=== PATIENT | male | born 1965 | race African-American/Black ===

== ENCOUNTER → 2016-11-18 | Outpatient (CLI) | payer OTHER ==
--- NOTE | 2016-11-18 15:57 | MR ---
MRI CERVICAL SPINE: CLINICAL HISTORY: Cervicalgia, spondylosis, and radiculopathy all per order. Headache with neck pain causing pain or weakness into both arms and fingers for 3+ years per patient. History of prior neck s urgery per patient. TECHNIQUE: Multiplanar, multisequence imaging of the cervical spine is performed without and with IV contrast, 13 cc of gadolinium was given intravenously. COMPARISON: Cervical spine x-ray March 04, 2015. FINDINGS: Sagittal images of the cervical spine show the craniocervical junction to appear within nor mal limits. The cervical and upper thoracic spinal cord is normal in course, caliber, and signal. V ertebral alignment is anatomic. There is artifact from anterior fusion plate C5-C7 levels. The verte bral body and intravertebral disk heights are normal above and below surgical levels. No suspicious posterior disc herniations are seen. The bone marrow signal intensity is within normal limits. No abn ormal postcontrast enhancement is noted. Mild to moderate spurring anterior inferior C4 endplate is p resent. Axial images show the C2-C3 level to appear within normal limits. Axial images at C3-C4 level show left paracentral/foraminal spur disc complex on axial image 43 with left-sided uncovertebral facet degenerative changes, there is effacement of anterolateral thecal sac and moderate left-sided neural foraminal narrowing seen. Right-sided neural foramen is patent. Axial images at C4-C5 level show small lobulated broad-based left paracentral disc protrusion effacin g anterolateral thecal sac with asymmetric mild to moderate left-sided neural foraminal narrowing as there are some uncovertebral facet degenerative changes seen bilaterally near axial image 30. The rig ht sided neural foramen is patent. Axial images at C5-C6 and C6-C7 level show artifact from surgical change. Spinal canal is fairly well -maintained and bilateral neural foramina are patent. Axial images at C7-T1 level are felt within normal limits. IMPRESSION: Postsurgical changes C5-C7 level with satisfactory alignment identified. There are degene rative changes C3-C4 and C4-C5 level noted as detailed above.
== END ==
LOC: RADMRIMAIN 14:40
PROVIDERS: ATTEND Neurological Surgery
DX: M50.31 Other cervical disc degeneration, high cervical region (principal); M50.221 Other cervical disc displacement at C4-C5 level
CPT/HCPCS: 72156; A9577

== ENCOUNTER 2016-12-13 18:08 | Emergency (ER) | payer OTHER ==
[2016-12-13 19:22] VITALS: PULSE 66
[2016-12-13] MEDS ORDERED: KETOROLAC 30 MG/ML 1 ML VIAL IVP STA (19:36)
[2016-12-13] MEDS ORDERED: MORPHINE SULFATE 4 MG/ML SYRINGE IVP STA (19:36)
--- NOTE | 2016-12-13 19:36 | ED ---
General Adult HPI - General Chief complaint: Back Pain/Injury Stated complaint: BACK PAIN, POST COLONOSCOPY Time Seen by Provider: 12/13/16 19:23 Source: patient, RN notes reviewed Mode of arrival: wheelchair Limitations: no limitations - History of Present Illness Initial comments: 51-year-old male presenting for low back pain. Patient states he has chronic low back pain and has had multiple prior back surgeries. He states it is acutely worse over the past few days. He does state that he had colonoscopy on Friday of this week by Dr. Aguilar. He is concerned about complications with this. He denies any abdominal pain associated. Denies any fevers or chills. He denies any nausea or vomiting. States he's been taking his normal [place] without improvement of his pain. He denies any falls. He denies any saddle paresthesias. He denies any bowel or bladder incontinence. - Related Data Home Medications Medication Instructions Recorded Confirmed HYDROcodone/APAP 10-325MG [[place] 1 tab PO Q6H PRN 11/08/16 12/13/16 10-325] Previous Rx's Medication Instructions Recorded Diazepam [Valium] 5 mg PO BID PRN #8 tab 12/13/16 Ibuprofen [Motrin] 800 mg PO Q8HR PRN #21 tab 12/13/16 Allergies Allergy/AdvReac Type Severity Reaction Status Date / Time No Known Allergies Allergy Verified 12/13/16 19:45 Review of Systems ROS Statement: Those systems with pertinent positive or pertinent negative responses have been documented in the HPI. ROS Other: All systems not noted in ROS Statement are negative. Past Medical History Past Medical History: No Reported History, Unable to Obtain Additional Past Medical History / Comment(s): C/O of R shoulder and back pain., chronic neck pain History of Any Multi-Drug Resistant Organisms: None Reported Past Surgical History: Orthopedic Surgery Additional Past Surgical History / Comment(s): Repair of broken nose in February 2015. Epidural injections to his neck. Past Anesthesia/Blood Transfusion Reactions: No Reported Reaction Past Psychological History: No Psychological Hx Reported Smoking Status: Former smoker Past Alcohol Use History: None Reported Additional Past Alcohol Use History / Comment(s): Smokes 1/2 ppd x 30 yrs. Past Drug Use History: None Reported - Past Family History Mother Family Medical History: Cancer Additional Family Medical History / Comment(s): Unknown General Exam - General Exam Comments Initial Comments: General: Awake and Alert. No acute distress. Does not appear acutely ill. Eyes: FABIOLA, EOM intact. No nystagmus. No scleral icterus. HENT: Atraumatic, normocephalic. Mucous membranes moist. Trachea midline. Neck: The neck is supple, there is no tenderness or JVD. Cardiovascular: Regular rate and rhythm. No murmur, rub, or gallop is appreciated. Distal pulses intact, 2+ radial and DP bilateral. Respiratory: Lungs are clear to auscultation bilaterally. No wheezes, rales, rhonchi. No respiratory distress. Gastrointestinal: Soft, Nontender. No rebound or guarding. Non-distended. No masses or organomegaly noted. No CVA tenderness. Musculoskeletal: Low back tenderness. No gross deformity. No strength deficits. Neurological: A&Ox3. CN II-XII grossly intact, There are no obvious motor or sensory deficits. Coordination appears grossly intact. Speech is normal. No saddle paresthesias. Normal gait. Skin: Skin is warm and dry and no rashes or lesions are noted. Psychiatric: Cooperative, appropriate mood & affect, normal judgment. Limitations: no limitations Course Vital Signs 12/13/16 12/13/16 19:19 21:05 Temperature 97.5 F L 98.1 F Pulse Rate 66 66 Respiratory 20 16 Rate Blood Pressure 142/55 113/56 O2 Sat by Pulse 100 98 Oximetry Medical Decision Making - Medical Decision Making 51-year-old male with history of chronic back pain presenting for low back pain. Patient recently had colonoscopy. Patient is without any significant abdominal tenderness on examination or evidence of peritonitis. Does have low back tenderness although this is chronic per patient, but worsened.. No evidence of cauda equina or acute cord compression at this time. Given pain medications and muscle relaxer. On reevaluation states he is feeling improved. Abdominal x-ray was performed with no evidence of free air. Lab work with mild leukocytosis but labs otherwise stable. This leukocytosis is likely reactive to pain and recent procedure. Discussion with patient about acute flare of his chronic pain is likely secondary to positional changes during the colonoscopy. Low suspicion of acute bowel perforation or severe infectious etiology at this time. Discussed pain management and Rx provided. Discussed close follow-up with PCP. Discussed close follow-up with Dr. Aguilar, surgery. Pt states he is following up with his pain doctor next week. Discussed concerning signs symptoms for immediate return to the ED. Patient is agreeable with plan and discharge home. - Lab Data Result diagrams: 12/13/16 19:55 12/13/16 19:55 Lab Results 12/13/16 12/13/16 Range/Units 19:55 19:55 WBC 13.4 H (3.8-10.6) k/uL RBC 4.60 (4.30-5.90) m/uL Hgb 14.6 (13.0-17.5) gm/dL Hct 43.5 (39.0-53.0) % MCV 94.6 (80.0-100.0) fL MCH 31.6 (25.0-35.0) pg MCHC 33.4 (31.0-37.0) g/dL RDW 12.5 (11.5-15.5) % Plt Count 264 (150-450) k/uL Neutrophils % 64 % Lymphocytes % 28 % Monocytes % 5 % Eosinophils % 1 % Basophils % 1 % Neutrophils # 8.5 H (1.3-7.7) k/uL Lymphocytes # 3.8 (1.0-4.8) k/uL Monocytes # 0.7 (0-1.0) k/uL Eosinophils # 0.2 (0-0.7) k/uL Basophils # 0.1 (0-0.2) k/uL Sodium 140 (137-145) mmol/L Potassium 3.6 (3.5-5.1) mmol/L Chloride 105 (98-107) mmol/L Carbon Dioxide 23 (22-30) mmol/L Anion Gap 12 mmol/L BUN 13 (9-20) mg/dL Creatinine 0.90 (0.66-1.25) mg/dL Est GFR (MDRD) Af Amer >60 (>60 ml/min/1.73 sqM) Est GFR (MDRD) Non-Af >60 (>60 ml/min/1.73 sqM) Glucose 89 (74-99) mg/dL Calcium 10.0 (8.4-10.2) mg/dL Total Bilirubin 0.8 (0.2-1.3) mg/dL AST 17 (17-59) U/L ALT 28 (21-72) U/L Alkaline Phosphatase 73 (38-126) U/L Total Protein 7.7 (6.3-8.2) g/dL Albumin 4.6 (3.5-5.0) g/dL Lipase 86 (23-300) U/L - Radiology Data Radiology results: report reviewed, image reviewed Disposition Clinical Impression: Back spasm, Back pain Disposition: HOME SELF-CARE Condition: Stable Instructions: Acute Low Back Pain (ED), Chronic Back Pain (ED) Prescriptions: Diazepam [Valium] 5 mg PO BID PRN #8 tab PRN Reason: back spasm Ibuprofen [Motrin] 800 mg PO Q8HR PRN #21 tab PRN Reason: Pain Referrals: Ping Leon MD [Primary Care Provider] - 1-2 days
[2016-12-13] MEDS ORDERED: DIAZEPAM 5 MG TAB PO STA (19:37)
[2016-12-13 20:04] LABS: Basophils # (A) 0.1 k/uL (0-0.2); Basophils % (A) 1 %; Eosinophils # (A) 0.2 k/uL (0-0.7); Eosinophils % (A) 1 %; HCT 43.5 % (39.0-53.0); HDW 2.23; HGB 14.6 gm/dL (13.0-17.5); Luc # (Auto) 0.21; Luc % (Auto) 2; Lymphocytes # (A) 3.8 k/uL (1.0-4.8); Lymphocytes % (A) 28 %; MCH 31.6 pg (25.0-35.0); MCHC 33.4 g/dL (31.0-37.0); MCV 94.6 fL (80.0-100.0); Mean Platelet Volume 7.3; Monocytes # (A) 0.7 k/uL (0-1.0); Monocytes % (A) 5 %; Neutrophils # (A) 8.5 k/uL (1.3-7.7); Neutrophils % (A) 64 %; RDW 12.5 % (11.5-15.5); WBC 13.4 k/uL (3.8-10.6); WBC (Perox) 12.89
[2016-12-13 20:13] LABS: ALT 28 U/L (21-72); AST 17 U/L (17-59); Alkaline Phosphatase 73 U/L (38-126); Anion Gap 12 mmol/L; Blood Urea Nitrogen 13 mg/dL (9-20); Carbon Dioxide 23 mmol/L (22-30); Chloride 105 mmol/L (98-107); Glucose 89 mg/dL (74-99); Non-African American GFR(MDRD) >60 (>60 ml/min/1.73 sqM); Potassium 3.6 mmol/L (3.5-5.1); Sodium 140 mmol/L (137-145); Total Bilirubin 0.8 mg/dL (0.2-1.3); Total Protein 7.7 g/dL (6.3-8.2)
--- NOTE | 2016-12-13 20:13 | XR ---
EXAMINATION TYPE: XR KUB DATE OF EXAM: 12/13/2016 8:04 PM COMPARISON: NONE HISTORY: Back pain TECHNIQUE: 2 views FINDINGS: There is no sign of intestinal obstruction or pneumoperitoneum. Fecal pattern is normal. Th ere is no sign of a mass. There are no pathologic calcifications over the kidneys. Lung bases are vincent ar. IMPRESSION: Nonacute abdomen.
[2016-12-13 21:13] VITALS: BP 113/56; RESP 16; TEMP 98.1
== END 2016-12-13 21:30 | disposition home or self-care (01) ==
LOC: EC 18:08
DX: M62.830 Muscle spasm of back (principal); D72.829 Elevated white blood cell count, unspecified; Z87.891 Personal history of nicotine dependence; Z98.890 Other specified postprocedural states
CPT/HCPCS: 99283; 96374; 96375; 36415; 80053; 83690; 85025; 74000; J2270; J1885

== ENCOUNTER 2017-04-08 16:14 | Emergency (ER) | payer OTHER ==
[2017-04-08 16:18] VITALS: TEMP 97.8
--- NOTE | 2017-04-08 16:57 | ED ---
Extremity Problem HPI - General Chief complaint: Extremity Problem,Nontraumatic Stated complaint: Wrist Pain Time Seen by Provider: 04/08/17 16:30 Source: patient, RN notes reviewed Mode of arrival: ambulatory Limitations: no limitations - History of Present Illness Initial comments: This a 51-year-old male presents emergency Department with chief complaint of right wrist pain. Patient states it started on Friday after playing washers. Patient states that he is [id number]. He states that he has swelling and pain associated to the right wrist worse with movement better at rest. Patient denies any paresthesias. Denies any falls or traumatic injuries. Patient denies any fever, chills. - Related Data Home Medications Medication Instructions Recorded Confirmed HYDROcodone/APAP 10-325MG [[place] 1 tab PO BID PRN 11/08/16 04/08/17 10-325] Previous Rx's Medication Instructions Recorded methylPREDNISolone [Medrol Dose 4 mg PO DIRECTED #1 pack 04/08/17 Pack] Allergies Allergy/AdvReac Type Severity Reaction Status Date / Time No Known Allergies Allergy Verified 04/08/17 16:34 Review of Systems ROS Statement: Those systems with pertinent positive or pertinent negative responses have been documented in the HPI. ROS Other: All systems not noted in ROS Statement are negative. Past Medical History Past Medical History: No Reported History, Unable to Obtain Additional Past Medical History / Comment(s): C/O of R shoulder and back pain., chronic neck pain History of Any Multi-Drug Resistant Organisms: None Reported Past Surgical History: Orthopedic Surgery Additional Past Surgical History / Comment(s): Repair of broken nose in February 2015. Epidural injections to his neck. Past Anesthesia/Blood Transfusion Reactions: No Reported Reaction Past Psychological History: No Psychological Hx Reported Smoking Status: Current every day smoker Past Alcohol Use History: Occasional Past Drug Use History: None Reported - Past Family History Mother Family Medical History: Cancer Additional Family Medical History / Comment(s): Unknown General Exam Limitations: no limitations General appearance: alert, in no apparent distress Respiratory exam: Present: normal lung sounds bilaterally. Absent: respiratory distress, wheezes, rales, rhonchi, stridor Cardiovascular Exam: Present: regular rate, normal rhythm, normal heart sounds. Absent: systolic murmur, diastolic murmur, rubs, gallop, clicks Extremities exam: Present: other (Right wrist there is tenderness to palpation diffusely and pain with range of motion there is mild swelling noted with no change in temperature to the region pulses are equal bilaterally of the radial, there is no hand tenderness or any proximal radial ulnar tenderness) Neurological exam: Present: reflexes normal. Absent: motor sensory deficit Skin exam: Present: warm, dry, intact, normal color. Absent: rash Course Vital Signs 04/08/17 16:16 Temperature 97.8 F Pulse Rate 64 Respiratory 20 Rate Blood Pressure 144/87 O2 Sat by Pulse 99 Oximetry Procedures - Orthopedic Splinting/Casting Injury #1 Side: right Upper Extremity Injury Location: wrist Upper Extremity Immobilizer: volar splint (Short arm neurovascular intact before and after procedure) Medical Decision Making - Medical Decision Making 51-year-old male present emergency department with chief complaint of right wrist pain. Patient does have some swelling more consistent with tendinitis. Patient was playing wash it started. Patient was splinted for comfort care will follow-up with orthopedics. Return parameters were discussed. Disposition Clinical Impression: Right wrist tendinitis Disposition: HOME SELF-CARE Condition: Stable Instructions: Tendinitis (ED) Additional Instructions: Please return to the Emergency Department if symptoms worsen or any other concerns. Prescriptions: methylPREDNISolone [Medrol Dose Pack] 4 mg PO DIRECTED #1 pack Referrals: Ping Leon MD [Primary Care Provider] - 1-2 days Darvin Izquierdo DO [Doctor of Osteopathic Medicine] - 1-2 days Time of Disposition: 17:42
--- NOTE | 2017-04-08 17:21 | XR ---
PROCEDURE: XR wrist complete RT DATE AND TIME: 04/08/2017 4:58 PM REFERRING PHYSICIAN: Darvin Shetty CLINICAL INDICATION: PHH, Pain TECHNIQUE: Department protocol. COMPARISON: None FINDINGS: There is no fracture or malalignment. The soft tissues are remarkable for chondrocalcinosis throughou t the triangular fibrocartilage. There are scattered degenerative joint changes noted, predominantly mild in degree. IMPRESSION: 1. NO ACUTE PROCESS. 2. DEGENERATIVE CHANGES NOTED.
[2017-04-08] MEDS ORDERED: MORPHINE SULFATE 4 MG/ML SYRINGE IM STA (17:39)
[2017-04-08] MEDS ORDERED: predniSONE 50 MG TAB PO STA (17:40)
[2017-04-08 17:50] VITALS: BP 151/75; PULSE 61; RESP 18
== END 2017-04-08 17:50 | disposition home or self-care (01) ==
LOC: EC 16:14
DX: M77.8 Other enthesopathies, not elsewhere classified (principal); F17.200 Nicotine dependence, unspecified, uncomplicated
CPT/HCPCS: 73110; 99283; 29125; 96372; J2270; J7512

== ENCOUNTER 2017-06-17 05:59 | Emergency (ER) | payer OTHER ==
[2017-06-17] MEDS ORDERED: KETOROLAC 30 MG/ML 1 ML VIAL IVP STA (06:23)
[2017-06-17] MEDS ORDERED: HYDROmorphone 1 MG/ML 1 ML SYRINGE IVP STA ×2 (06:23→07:09)
[2017-06-17 06:31] LABS: Basophils # (A) 0.1 k/uL (0-0.2); Basophils % (A) 1 %; CH 31.3; CHCM 33.1; Eosinophils # (A) 0.3 k/uL (0-0.7); Eosinophils % (A) 3 %; HCT 45.4 % (39.0-53.0); HDW 2.12; HGB 14.8 gm/dL (13.0-17.5); Luc # (Auto) 0.16; Luc % (Auto) 1; Lymphocytes # (A) 3.2 k/uL (1.0-4.8); Lymphocytes % (A) 24 %; MCHC 32.6 g/dL (31.0-37.0); Mean Platelet Volume 7.6; Monocytes # (A) 0.7 k/uL (0-1.0); Monocytes % (A) 6 %; Neutrophils # (A) 8.6 k/uL (1.3-7.7); Neutrophils % (A) 66 %; RBC 4.77 m/uL (4.30-5.90); RDW 13.4 % (11.5-15.5); WBC (Perox) 12.91
[2017-06-17 06:37] LABS: Appearance,Urine Clear (Clear); Bilirubin,Urine Negative (Negative); Glucose,Urine (UA) Negative (Negative); Ketones,Urine Negative (Negative); Leukocyte Esterase,Urine Negative (Negative); Nitrite,Urine Negative (Negative); PH, Urine 6.5 (5.0-8.0); Protein,Urine Negative (Negative); Specific Gravity,Urine 1.015 (1.001-1.035); UA Billing (MACRO vs. MICRO) CHEM; Urobilinogen,Urine <2.0 mg/dL (<2.0)
[2017-06-17 06:41] LABS: ALT 23 U/L (21-72); AST 20 U/L (17-59); Alkaline Phosphatase 87 U/L (38-126); Amylase 75 U/L (30-110); Anion Gap 11 mmol/L; Blood Urea Nitrogen 11 mg/dL (9-20); Calcium 10.5 mg/dL (8.4-10.2); Carbon Dioxide 25 mmol/L (22-30); Chloride 101 mmol/L (98-107); Glucose 121 mg/dL (74-99); Non-African American GFR(MDRD) >60 (>60 ml/min/1.73 sqM); Potassium 4.2 mmol/L (3.5-5.1); Sodium 137 mmol/L (137-145); Total Bilirubin 0.3 mg/dL (0.2-1.3); Total Protein 7.6 g/dL (6.3-8.2)
--- NOTE | 2017-06-17 06:52 | XR ---
EXAMINATION TYPE: XR KUB DATE OF EXAM: 06/17/2017 6:45 AM CLINICAL HISTORY: Abdominal pain per order. Left-sided pain into back with weakness per patient. TECHNIQUE: Two supine KUB images of the abdomen are obtained. COMPARISON: Abdominal x-ray December 13, 2016. CT abdomen and pelvis November 08, 2016. FINDINGS: Scattered gas is seen in non-distended stomach and small bowel loops. Gas and fecal materia l is seen in non-distended colon. Right-sided pelvic phleboliths are redemonstrated. Lung bases are c lear. Visualized osseous structures are intact. Sclerotic focus right femoral neck is redemonstrated favored benign bone island. IMPRESSION: Overall nonobstructive bowel gas pattern. No significant change from prior studies.
--- NOTE | 2017-06-17 07:58 | CT ---
EXAMINATION TYPE: CT abdomen pelvis wo con DATE OF EXAM: 06/17/2017 HISTORY: Kidney/back pain CT DLP: 257.9 mGycm. Automated Exposure Control for Dose Reduction was Utilized. TECHNIQUE: CT scan of the abdomen and pelvis is performed without oral or IV contrast. COMPARISON: CT abdomen and pelvis November 08, 2016 FINDINGS: Within the limitations of a non-contrast study, the following observations are made. LUNG BASES: No significant abnormality is appreciated. LIVER/GB: No significant abnormality is appreciated. PANCREAS: No significant abnormality is seen. SPLEEN: No significant abnormality is seen. ADRENALS: No significant abnormality is seen. KIDNEYS: No renal stones or hydronephrosis is present bilaterally. A few scattered pelvic phleboliths are redemonstrated. Bladder is poorly distended and thus suboptimally evaluated. Bladder wall thickn ess measures up to 8 mm which is slightly thickened for 11 poorly distended bladder. Consider cystiti s. BOWEL: Patient has very little intra-abdominal fat making evaluation suboptimal. In addition lack of enteric contrast makes evaluation suboptimal. There is no suspicious small or large bowel dilatation. There is low-lying cecum into right pelvis. GENITAL ORGANS: Central zone calcifications are seen in normal size prostate gland.. LYMPH NODES: No greater than 1cm abdominal or pelvic lymph nodes are appreciated. OSSEOUS STRUCTURES: No significant abnormality is seen. OTHER: No significant additional abnormality is seen. IMPRESSION: No renal stones or hydronephrosis is seen bilaterally. No bowel obstruction is seen. Poss ible cystitis, clinical correlation advised. Otherwise no suspicious acute finding is present to acco unt for patient's symptoms.
--- NOTE | 2017-06-17 08:24 | ED ---
General Adult HPI - General Chief complaint: Abdominal Pain Stated complaint: Kidney/back pain Time Seen by Provider: 06/17/17 06:23 Source: patient, RN notes reviewed Mode of arrival: ambulatory Limitations: no limitations - History of Present Illness Initial comments: Patient was originally seen by Dr. Alvarado and endorsed to me. Patient was reported as left flank pain and further evaluation was being done. Patient is a pleasant 51-year-old male presenting to the emergency department for back pain. Patient describes discomfort in the lumbar region and states it does radiate towards the left flank. Patient does have a history of chronic lower back pain. Patient also has chronic carpal tunnel and chronic neck problems. Patient is on disability for his pain. Patient has not been able to see a pain management doctor recently. Patient states the medication he received here is starting to help him. Patient states when he walks around 1 mile his lower back seems to seize up on him. No tendons retention of bowel or bladder. No leg weakness. Patient does have paresthesias all over his body. Patient states his abdomen was hurting somewhat earlier however that has resolved. - Related Data Previous Rx's Medication Instructions Recorded Ibuprofen [Motrin] 600 mg PO Q6HR PRN #20 tab 06/17/17 Allergies Allergy/AdvReac Type Severity Reaction Status Date / Time No Known Allergies Allergy Verified 06/17/17 07:31 Review of Systems ROS Statement: Those systems with pertinent positive or pertinent negative responses have been documented in the HPI. ROS Other: All systems not noted in ROS Statement are negative. Constitutional: Denies: fever Eyes: Denies: eye pain ENT: Denies: ear pain Respiratory: Denies: cough Cardiovascular: Denies: chest pain Endocrine: Denies: fatigue Gastrointestinal: Reports: abdominal pain (Resolved) Genitourinary: Denies: dysuria Musculoskeletal: Reports: back pain (Chronic) Skin: Denies: rash Neurological: Denies: confusion Past Medical History Past Medical History: Unable to Obtain Additional Past Medical History / Comment(s): C/O of R shoulder and back pain., chronic neck pain History of Any Multi-Drug Resistant Organisms: None Reported Past Surgical History: Orthopedic Surgery Additional Past Surgical History / Comment(s): Repair of broken nose in February 2015. Epidural injections to his neck. Rotater cuff sx Past Anesthesia/Blood Transfusion Reactions: No Reported Reaction Past Psychological History: No Psychological Hx Reported Smoking Status: Current every day smoker Past Alcohol Use History: Occasional Past Drug Use History: None Reported - Past Family History Mother Family Medical History: Cancer Additional Family Medical History / Comment(s): Unknown General Exam Limitations: no limitations General appearance: alert, in no apparent distress Head exam: Present: atraumatic Eye exam: Present: normal appearance, PERRL ENT exam: Present: normal oropharynx Neck exam: Present: normal inspection Respiratory exam: Present: normal lung sounds bilaterally Cardiovascular Exam: Present: regular rate, normal rhythm Expanded Peripheral pulses: 2+: Posterior Tibialis (R), Posterior Tibialis (L), Dorsalis Pedis (R), Dorsalis Pedis (L) GI/Abdominal exam: Present: soft, normal bowel sounds. Absent: distended, tenderness, guarding, rebound, rigid, pulsatile mass Extremities exam: Present: normal inspection. Absent: tenderness Back exam: Present: tenderness (Mild tenderness lower lumbar spine) Neurological exam: Present: alert, CN II-XII intact. Absent: motor sensory deficit Expanded Sensory exam: Lower Extremity Light Touch: Normal Motor strength exam: RLE: 5, LLE: 5 Psychiatric exam: Present: normal affect, normal mood Skin exam: Present: normal color Course Vital Signs 06/17/17 06/17/17 06:01 07:51 Temperature 97.2 F L Pulse Rate 76 64 Respiratory 20 20 Rate Blood Pressure 151/71 134/64 O2 Sat by Pulse 100 98 Oximetry Medical Decision Making - Lab Data Result diagrams: 06/17/17 06:17 06/17/17 06:17 Lab Results 06/17/17 06/17/17 06/17/17 Range/Units 06:17 06:17 06:25 WBC 13.0 H (3.8-10.6) k/uL RBC 4.77 (4.30-5.90) m/uL Hgb 14.8 (13.0-17.5) gm/dL Hct 45.4 (39.0-53.0) % MCV 95.0 (80.0-100.0) fL MCH 31.0 (25.0-35.0) pg MCHC 32.6 (31.0-37.0) g/dL RDW 13.4 (11.5-15.5) % Plt Count 328 (150-450) k/uL Neutrophils % 66 % Lymphocytes % 24 % Monocytes % 6 % Eosinophils % 3 % Basophils % 1 % Neutrophils # 8.6 H (1.3-7.7) k/uL Lymphocytes # 3.2 (1.0-4.8) k/uL Monocytes # 0.7 (0-1.0) k/uL Eosinophils # 0.3 (0-0.7) k/uL Basophils # 0.1 (0-0.2) k/uL Sodium 137 (137-145) mmol/L Potassium 4.2 (3.5-5.1) mmol/L Chloride 101 (98-107) mmol/L Carbon Dioxide 25 (22-30) mmol/L Anion Gap 11 mmol/L BUN 11 (9-20) mg/dL Creatinine 1.01 (0.66-1.25) mg/dL Est GFR (MDRD) Af Amer >60 (>60 ml/min/1.73 sqM) Est GFR (MDRD) Non-Af >60 (>60 ml/min/1.73 sqM) Glucose 121 H (74-99) mg/dL Calcium 10.5 H (8.4-10.2) mg/dL Total Bilirubin 0.3 (0.2-1.3) mg/dL AST 20 (17-59) U/L ALT 23 (21-72) U/L Alkaline Phosphatase 87 (38-126) U/L Total Protein 7.6 (6.3-8.2) g/dL Albumin 4.5 (3.5-5.0) g/dL Amylase 75 (30-110) U/L Lipase 82 (23-300) U/L Urine Color Yellow Urine Appearance Clear (Clear) Urine pH 6.5 (5.0-8.0) Ur Specific [place] 1.015 (1.001-1.035) Urine Protein Negative (Negative) Urine Glucose (UA) Negative (Negative) Urine Ketones Negative (Negative) Urine Blood Negative (Negative) Urine Nitrite Negative (Negative) Urine Bilirubin Negative (Negative) Urine Urobilinogen <2.0 (<2.0) mg/dL Ur Leukocyte Esterase Negative (Negative) - Radiology Data Radiology results: report reviewed (Computed tomography scan of the abdomen pelvis shows no renal stones or hydronephrosis. No bowel obstruction. Some bladder wall thickness which is slightly thickened for poorly distended bladder. ), image reviewed (KUB shows no acute process.) Disposition Clinical Impression: Low back pain Disposition: HOME SELF-CARE Condition: Stable Instructions: Back Pain (ED) Additional Instructions: Please follow-up with your primary care physician in the next day or 2 for recheck. Return for weakness, abdominal pain, fevers, not tolerating oral intake, worsening symptoms or other concerns. Prescriptions: Ibuprofen [Motrin] 600 mg PO Q6HR PRN #20 tab PRN Reason: Pain Referrals: Ping Leon MD [Primary Care Provider] - 1-2 days Time of Disposition: 08:24
[2017-06-17 08:41] VITALS: BP 141/82; PULSE 69; RESP 18; TEMP 98.9
== END 2017-06-17 08:38 | disposition home or self-care (01) ==
LOC: EC 05:59
DX: M54.5 Low back pain (principal); F17.200 Nicotine dependence, unspecified, uncomplicated
CPT/HCPCS: 99284; 96374; 96375; 96376; 36415; 80053; 82150; 83690; 85025; 81003; 74000; 74176; J1885; J1170

== ENCOUNTER → 2017-09-22 | Outpatient (CLI) | payer OTHER ==
--- NOTE | 2017-09-22 12:08 | FL ---
EXAMINATION TYPE: FL barium swallow w video DATE OF EXAM: 09/22/2017 MODIFIED SWALLOW / DEGLUTITION STUDY CLINICAL HISTORY: Dysphagia. Choking on secretions for 6 months. Speech changes. TECHNIQUE: Deglutition study is performed utilizing thin liquid barium, honey and nectar thick liqui d barium, barium thick applesauce, and barium coated cracker. A total of 84 seconds of fluoroscopic t valeri was utilized during procedure. Approximately 12 cine sequences are acquired. 0 images are sent to PACS station. COMPARISON: None. FINDINGS: The oral and pharyngeal phases show satisfactory initiation and propagation with all modali ties tested. Normal mastication is seen with solid modalities tested. There is no evidence of penet ration or aspiration with any modality tested. No significant pharyngeal residue was appreciated. Th ere is redemonstration of anterior fusion plate C5-C7 levels incidentally noted. IMPRESSION: No penetration or aspiration is observed. Please refer to speech therapist notes for further details if necessary.
== END | disposition home or self-care (01) ==
LOC: RADFLMAIN 10:42
PROVIDERS: ATTEND Psychiatry & Neurology Pain Medicine
DX: R13.10 Dysphagia, unspecified (principal)
CPT/HCPCS: 74230

== ENCOUNTER 2018-12-31 19:32 | Emergency (ER) | payer OTHER ==
[2018-12-31 19:53] VITALS: TEMP 98.2
[2018-12-31] MEDS ORDERED: KETOROLAC 30 MG/ML 1 ML VIAL IVP STA (20:20)
[2018-12-31 20:23] LABS: Basophils # (A) 0.1 k/uL (0-0.2); Basophils % (A) 1 %; Eosinophils # (A) 0.3 k/uL (0-0.7); Eosinophils % (A) 2 %; HCT 48.7 % (39.0-53.0); HGB 15.7 gm/dL (13.0-17.5); Hypochromasia Slight; Lymphocytes # (A) 3.5 k/uL (1.0-4.8); Lymphocytes % (A) 34 %; MCH 29.9 pg (25.0-35.0); MCHC 32.2 g/dL (31.0-37.0); MCV 93.1 fL (80.0-100.0); Mean Platelet Volume 7.8; Monocytes # (A) 0.6 k/uL (0-1.0); Monocytes % (A) 6 %; Neutrophils # (A) 5.8 k/uL (1.3-7.7); Neutrophils % (A) 55 %; Platelet Count 275 k/uL (150-450); Poikilocytosis Slight; RBC 5.23 m/uL (4.30-5.90); WBC 10.5 k/uL (3.8-10.6)
--- NOTE | 2018-12-31 20:29 | ED ---
General Adult HPI - General Chief complaint: Recheck/Abnormal Lab/Rx Stated complaint: Leg pain Time Seen by Provider: 12/31/18 19:47 Source: patient, EMS - History of Present Illness Initial comments: Dictation was produced using [employer] dictation software. please excuse any grammatical, word or spelling errors. Chief Complaint: 53-year-old male past medical history of chronic pain, multiple orthopedic surgeries presents with bilateral lower extremity symptoms 1 day. History of Present Illness: Patient is a 53-year-old male has past medical history of chronic pain. Patient states she's been having numbness to his bilateral lateral thighs, bilateral ankle pain. Patient states that his symptoms started today. He initially thought it was gout however the pain first arose in the right foot. And then states that his right ankle improved and now his left ankle hurts. Patient states that been shaky since the onset of his symptoms. Patient states he had a similar episode like this one year ago. Patient denies any nausea vomiting abdominal pain. He still does report bilateral ankle pain however worse in the left and on the right. The ROS documented in this emergency department record has been reviewed and confirmed by me. Those systems with pertinent positive or negative responses have been documented in the HPI. All other systems are other negative and/or noncontributory. PHYSICAL EXAM: General Impression: Alert and oriented x3, acute distress secondary to pain HEENT: Normocephalic atraumatic, extra-ocular movements intact, pupils equal and reactive to light bilaterally, mucous membranes moist. Cardiovascular: Heart regular rate and rhythm, S1&S2 audible, no murmurs, rubs or gallops Chest: Lungs clear to auscultation bilaterally, no rhonchi, no wheeze, no rales Abdomen: Bowel sounds present, abdomen soft, non-tender, non-distended, no organomegaly Musculoskeletal: Pulses present and equal in all extremities, no peripheral edema Motor: no focal deficits noted Neurological: CN II-XII grossly intact, no focal motor or sensory deficits noted Skin: Intact with no visualized rashes Psych: Anxious ED course: 53-year-old male presents with polyarthropathy and paresthetic to the bilateral lateral thighs. Vital signs upon arrival are within acceptable limits. Patient appears slightly anxious. Laboratory evaluation obtained. CBC, metabolic panel is unremarkable. Urinalysis shows 1+ ketones. Urine drug screen is negative. Patient given Toradol and Ativan. Patient observed in emergency department for several hours. He is reevaluated with improvement of symptoms. This point there is no clear source of patient's symptoms. He is dramatically improved denies any symptoms at this time. Patient told to follow-up with PCP. Patient clear for discharge. Return parameters discussed. EKG interpretation: Ventricular rate 65, normal sinus rhythm,. Interval 134, QS 114, QTc 436. No FL prolongation, no QTC prolongation, no ST or T-wave changes noted. Overall, this EKG is unremarkable - Related Data Home Medications Medication Instructions Recorded Confirmed No Known Home Medications 12/31/18 12/31/18 Allergies Allergy/AdvReac Type Severity Reaction Status Date / Time No Known Allergies Allergy Verified 12/31/18 20:02 Review of Systems ROS Statement: Those systems with pertinent positive or pertinent negative responses have been documented in the HPI. ROS Other: All systems not noted in ROS Statement are negative. Past Medical History Past Medical History: Unable to Obtain Additional Past Medical History / Comment(s): C/O of R shoulder and back pain., chronic neck pain History of Any Multi-Drug Resistant Organisms: None Reported Past Surgical History: Orthopedic Surgery Additional Past Surgical History / Comment(s): Repair of broken nose in February 2015. Epidural injections to his neck. Rotater cuff sx Past Anesthesia/Blood Transfusion Reactions: No Reported Reaction Past Psychological History: No Psychological Hx Reported Smoking Status: Current every day smoker Past Alcohol Use History: Occasional Past Drug Use History: None Reported - Past Family History Mother Family Medical History: Cancer Additional Family Medical History / Comment(s): Unknown Course Vital Signs 12/31/18 12/31/18 12/31/18 19:37 19:40 19:50 Temperature 98.2 F Pulse Rate 71 67 Respiratory 14 21 Rate Blood Pressure 152/78 152/78 O2 Sat by Pulse 100 100 100 Oximetry 12/31/18 12/31/18 12/31/18 20:20 20:40 21:00 Temperature Pulse Rate 70 73 59 L Respiratory 17 13 30 H Rate Blood Pressure 138/97 132/74 132/74 O2 Sat by Pulse 100 100 100 Oximetry 12/31/18 12/31/18 21:50 22:00 Temperature Pulse Rate 58 L 57 L Respiratory 13 13 Rate Blood Pressure O2 Sat by Pulse 97 97 Oximetry Medical Decision Making - Lab Data Result diagrams: 12/31/18 19:53 12/31/18 20:49 Lab Results 12/31/18 12/31/18 12/31/18 Range/Units 19:53 20:49 20:49 WBC 10.5 (3.8-10.6) k/uL RBC 5.23 (4.30-5.90) m/uL Hgb 15.7 (13.0-17.5) gm/dL Hct 48.7 (39.0-53.0) % MCV 93.1 (80.0-100.0) fL MCH 29.9 (25.0-35.0) pg MCHC 32.2 (31.0-37.0) g/dL RDW 14.0 (11.5-15.5) % Plt Count 275 (150-450) k/uL Neutrophils % 55 % Lymphocytes % 34 % Monocytes % 6 % Eosinophils % 2 % Basophils % 1 % Neutrophils # 5.8 (1.3-7.7) k/uL Lymphocytes # 3.5 (1.0-4.8) k/uL Monocytes # 0.6 (0-1.0) k/uL Eosinophils # 0.3 (0-0.7) k/uL Basophils # 0.1 (0-0.2) k/uL Hypochromasia Slight Poikilocytosis Slight Sodium 139 (137-145) mmol/L Potassium 4.0 (3.5-5.1) mmol/L Chloride 108 H (98-107) mmol/L Carbon Dioxide 24 (22-30) mmol/L Anion Gap 7 mmol/L BUN 9 (9-20) mg/dL Creatinine 0.91 (0.66-1.25) mg/dL Est GFR (CKD-EPI)AfAm >90 (>60 ml/min/1.73 sqM) Est GFR (CKD-EPI)NonAf >90 (>60 ml/min/1.73 sqM) Glucose 93 (74-99) mg/dL Calcium 9.2 (8.4-10.2) mg/dL Ionized Calcium [place] 5.0 (4.5-5.3) mg/dL Magnesium 2.0 (1.6-2.3) mg/dL Troponin I <0.012 (0.000-0.034) ng/mL Urine Color Urine Appearance (Clear) Urine pH (5.0-8.0) Ur Specific [place] (1.001-1.035) Urine Protein (Negative) Urine Glucose (UA) (Negative) Urine Ketones (Negative) Urine Blood (Negative) Urine Nitrite (Negative) Urine Bilirubin (Negative) Urine Urobilinogen (<2.0) mg/dL Ur Leukocyte Esterase (Negative) Urine Opiates Screen (NotDetected) Ur Oxycodone Screen (NotDetected) Urine Methadone Screen (NotDetected) Ur Propoxyphene Screen (NotDetected) Ur Barbiturates Screen (NotDetected) U Tricyclic Antidepress (NotDetected) Ur Phencyclidine Scrn (NotDetected) Ur Amphetamines Screen (NotDetected) U Methamphetamines Scrn (NotDetected) U Benzodiazepines Scrn (NotDetected) Urine Cocaine Screen (NotDetected) U Marijuana (THC) Screen (NotDetected) 12/31/18 12/31/18 Range/Units 20:50 21:50 WBC (3.8-10.6) k/uL RBC (4.30-5.90) m/uL Hgb (13.0-17.5) gm/dL Hct (39.0-53.0) % MCV (80.0-100.0) fL MCH (25.0-35.0) pg MCHC (31.0-37.0) g/dL RDW (11.5-15.5) % Plt Count (150-450) k/uL Neutrophils % % Lymphocytes % % Monocytes % % Eosinophils % % Basophils % % Neutrophils # (1.3-7.7) k/uL Lymphocytes # (1.0-4.8) k/uL Monocytes # (0-1.0) k/uL Eosinophils # (0-0.7) k/uL Basophils # (0-0.2) k/uL Hypochromasia Poikilocytosis Sodium (137-145) mmol/L Potassium (3.5-5.1) mmol/L Chloride (98-107) mmol/L Carbon Dioxide (22-30) mmol/L Anion Gap mmol/L BUN (9-20) mg/dL Creatinine (0.66-1.25) mg/dL Est GFR (CKD-EPI)AfAm (>60 ml/min/1.73 sqM) Est GFR (CKD-EPI)NonAf (>60 ml/min/1.73 sqM) Glucose (74-99) mg/dL Calcium (8.4-10.2) mg/dL Ionized Calcium [place] (4.5-5.3) mg/dL Magnesium (1.6-2.3) mg/dL Troponin I (0.000-0.034) ng/mL Urine Color Light Yellow Urine Appearance Clear (Clear) Urine pH 8.0 (5.0-8.0) Ur Specific [place] 1.014 (1.001-1.035) Urine Protein Negative (Negative) Urine Glucose (UA) Negative (Negative) Urine Ketones 1+ H (Negative) Urine Blood Negative (Negative) Urine Nitrite Negative (Negative) Urine Bilirubin Negative (Negative) Urine Urobilinogen <2.0 (<2.0) mg/dL Ur Leukocyte Esterase Negative (Negative) Urine Opiates Screen Not Detected (NotDetected) Ur Oxycodone Screen Not Detected (NotDetected) Urine Methadone Screen Not Detected (NotDetected) Ur Propoxyphene Screen Not Detected (NotDetected) Ur Barbiturates Screen Not Detected (NotDetected) U Tricyclic Antidepress Not Detected (NotDetected) Ur Phencyclidine Scrn Not Detected (NotDetected) Ur Amphetamines Screen Not Detected (NotDetected) U Methamphetamines Scrn Not Detected (NotDetected) U Benzodiazepines Scrn Not Detected (NotDetected) Urine Cocaine Screen Not Detected (NotDetected) U Marijuana (THC) Screen Not Detected (NotDetected) Disposition Clinical Impression: Myalgia, Arthralgia Disposition: HOME SELF-CARE Condition: Good Instructions (If sedation given, give patient instructions): Musculoskeletal Pain (ED) Is patient prescribed a controlled substance at d/c from ED?: No Referrals: Ping Leon MD [Primary Care Provider] - 1-2 days Time of Disposition: 22:12
[2018-12-31] MEDS ORDERED: LORazepam 2 MG/ML INJ IV STA (20:55)
[2018-12-31 21:07] LABS: Appearance,Urine Clear (Clear); Bilirubin,Urine Negative (Negative); Blood,Urine Negative (Negative); Color,Urine Light Yellow; Glucose,Urine (UA) Negative (Negative); Ketones,Urine 1+ (Negative); Leukocyte Esterase,Urine Negative (Negative); Nitrite,Urine Negative (Negative); Protein,Urine Negative (Negative); Specific Gravity,Urine 1.014 (1.001-1.035); Urobilinogen,Urine <2.0 mg/dL (<2.0)
[2018-12-31 21:13] LABS: Anion Gap 7 mmol/L; Blood Urea Nitrogen 9 mg/dL (9-20); Calcium 9.2 mg/dL (8.4-10.2); Carbon Dioxide 24 mmol/L (22-30); Chloride 108 mmol/L (98-107); Glucose 93 mg/dL (74-99); Sodium 139 mmol/L (137-145)
[2018-12-31 21:21] LABS: Amphetamine Screen,Urine Not Detected (NotDetected); Benzodiazepines Screen,Urine Not Detected (NotDetected); Cocaine Screen,Urine Not Detected (NotDetected); Methadone Screen, Urine Not Detected (NotDetected); Opiate Screen,Urine Not Detected (NotDetected); Phencyclidine Screen,Urine Not Detected (NotDetected); Tricyclic Antidepressant,Urine Not Detected (NotDetected); Urn Cannabinoid Scrn Not Detected (NotDetected)
[2018-12-31 21:22] LABS: Barbiturate Screen,Urine Not Detected (NotDetected); Oxycodone Screen, Urine Not Detected (NotDetected)
[2019-01-01 00:24] VITALS: BP 117/75; PULSE 76; RESP 16
[2019-01-01 07:23] LABS: Glucose,Whole Blood 88 mg/dL (75-99)
== END 2019-01-01 00:19 | disposition home or self-care (01) ==
LOC: EC 19:32
DX: M79.18 Myalgia, other site (principal); M25.572 Pain in left ankle and joints of left foot; M25.571 Pain in right ankle and joints of right foot; R20.2 Paresthesia of skin; F17.200 Nicotine dependence, unspecified, uncomplicated; Z87.828 Personal history of other (healed) physical injury and trauma; Z98.890 Other specified postprocedural states
CPT/HCPCS: 36415; 80048; 82330; 83735; 84484; 85025; 81003; 80306; 99284; 96374; 96375; J2060; J1885

== ENCOUNTER 2019-08-23 17:21 | Emergency (ER) | payer MEDICARE ==
[2019-08-23] MEDS ORDERED: DIPH,PERTUS(ACELL)TETVAC-LF 0.5 ML VIAL IM ONE (18:14)
[2019-08-23] MEDS ORDERED: SODIUM CHLORIDE 0.9% 1,000 ML IV ONE (18:32)
--- NOTE | 2019-08-23 18:32 | ED ---
General Adult HPI - General Chief complaint: Fall Stated complaint: Fell head injury Time Seen by Provider: 08/23/19 18:11 Source: patient, RN notes reviewed, old records reviewed Mode of arrival: wheelchair Limitations: no limitations - History of Present Illness Initial comments: 53-year-old male presents status post fall with head trauma. Fall occurred approximately 24 hours prior to arrival. He admits to heavy alcohol consumption yesterday. He states he blacked out does not remember the fall specifically. He had sobered up and was able to seek help with his neighbor who brought to the emergency department. He was ambulatory. No chest pain or abdominal pain. No extremity injury. He is uncertain how long he was unconscious. No preceding chest pain or palpitations. Denies any other drugs of abuse. - Related Data Previous Rx's Medication Instructions Recorded HYDROcodone/APAP 5-325MG [[place] 1 tab PO Q6HR PRN #12 tab 08/23/19 5-325] Ibuprofen [Motrin] 600 mg PO Q8HR PRN #24 tab 08/23/19 Allergies Allergy/AdvReac Type Severity Reaction Status Date / Time No Known Allergies Allergy Verified 08/23/19 17:39 Review of Systems ROS Statement: Those systems with pertinent positive or pertinent negative responses have been documented in the HPI. ROS Other: All systems not noted in ROS Statement are negative. Past Medical History Past Medical History: Unable to Obtain Additional Past Medical History / Comment(s): C/O of R shoulder and back pain., chronic neck pain History of Any Multi-Drug Resistant Organisms: None Reported Past Surgical History: Orthopedic Surgery Additional Past Surgical History / Comment(s): Repair of broken nose in February 2015. Epidural injections to his neck. Rotater cuff sx Past Anesthesia/Blood Transfusion Reactions: No Reported Reaction Past Psychological History: No Psychological Hx Reported Smoking Status: Current every day smoker Past Alcohol Use History: Occasional Past Drug Use History: None Reported - Past Family History Mother Family Medical History: Cancer Additional Family Medical History / Comment(s): Unknown General Exam Limitations: no limitations General appearance: alert, in no apparent distress Head exam: Present: normocephalic. Absent: atraumatic (Abrasion and hematoma on the forehead) Eye exam: Present: normal appearance, PERRL, EOMI. Absent: scleral icterus, periorbital swelling, periorbital tenderness ENT exam: Present: normal exam Neck exam: Present: normal inspection, tenderness (Cervical tenderness). Absent: meningismus Respiratory exam: Present: normal lung sounds bilaterally. Absent: respiratory distress, wheezes Cardiovascular Exam: Present: regular rate, normal rhythm GI/Abdominal exam: Present: soft. Absent: distended, tenderness Extremities exam: Present: normal inspection, normal capillary refill. Absent: pedal edema Neurological exam: Present: alert, oriented X3, CN II-XII intact, normal gait. Absent: motor sensory deficit Psychiatric exam: Present: normal affect, normal mood Skin exam: Present: warm, dry. Absent: cyanosis, diaphoretic Course Vital Signs 08/23/19 08/23/19 08/23/19 17:33 19:00 19:02 Temperature 98.7 F Pulse Rate 102 H 58 L 67 Respiratory 22 17 18 Rate Blood Pressure 147/89 143/73 151/76 O2 Sat by Pulse 100 100 100 Oximetry 08/23/19 08/23/19 08/23/19 19:30 19:40 20:00 Temperature Pulse Rate 56 L 64 84 Respiratory 16 15 18 Rate Blood Pressure 151/76 150/80 141/86 O2 Sat by Pulse 100 99 Oximetry Medical Decision Making - Medical Decision Making 52-year-old male presents status post fall after a night of heavy drinking. He has an abrasion and minimal hematoma to the forehead. He has previous cervical spine fusion. CT of the brain and neck is performed. He has a CT brain is negative for intracranial hemorrhage or mass effect. CT cervical spine shows previous surgical repair with no acute fracture subluxation. Chest x-ray negative for focal pneumonia. He has normal labs with the exception of a mildly elevated alcohol which is below the legal limit. He's given Motrin for pain. He will follow-up with his doctor. He is encouraged to reduce the amount of alcohol consumption. - Lab Data Result diagrams: 08/23/19 18:45 08/23/19 18:45 Lab Results 08/23/19 08/23/19 08/23/19 Range/Units 18:45 18:45 18:45 WBC 8.5 (3.8-10.6) k/uL RBC 4.62 (4.30-5.90) m/uL Hgb 14.8 (13.0-17.5) gm/dL Hct 43.7 (39.0-53.0) % MCV 94.6 (80.0-100.0) fL MCH 32.1 (25.0-35.0) pg MCHC 34.0 (31.0-37.0) g/dL RDW 12.4 (11.5-15.5) % Plt Count 295 (150-450) k/uL Neutrophils % 60 % Lymphocytes % 30 % Monocytes % 4 % Eosinophils % 3 % Basophils % 1 % Neutrophils # 5.1 (1.3-7.7) k/uL Lymphocytes # 2.6 (1.0-4.8) k/uL Monocytes # 0.3 (0-1.0) k/uL Eosinophils # 0.3 (0-0.7) k/uL Basophils # 0.1 (0-0.2) k/uL PT 9.8 (9.0-12.0) sec INR 0.9 (<1.2) APTT 22.1 (22.0-30.0) sec Sodium 141 (137-145) mmol/L Potassium 4.9 (3.5-5.1) mmol/L Chloride 109 H (98-107) mmol/L Carbon Dioxide 24 (22-30) mmol/L Anion Gap 8 mmol/L BUN 9 (9-20) mg/dL Creatinine 0.92 (0.66-1.25) mg/dL Est GFR (CKD-EPI)AfAm >90 (>60 ml/min/1.73 sqM) Est GFR (CKD-EPI)NonAf >90 (>60 ml/min/1.73 sqM) Glucose 89 (74-99) mg/dL Calcium 8.9 (8.4-10.2) mg/dL Total Bilirubin 0.4 (0.2-1.3) mg/dL AST 25 (17-59) U/L ALT 19 (4-49) U/L Alkaline Phosphatase 51 (38-126) U/L Total Protein 6.8 (6.3-8.2) g/dL Albumin 4.1 (3.5-5.0) g/dL Urine Color Urine Appearance (Clear) Urine pH (5.0-8.0) Ur Specific [place] (1.001-1.035) Urine Protein (Negative) Urine Glucose (UA) (Negative) Urine Ketones (Negative) Urine Blood (Negative) Urine Nitrite (Negative) Urine Bilirubin (Negative) Urine Urobilinogen (<2.0) mg/dL Ur Leukocyte Esterase (Negative) Urine Opiates Screen (NotDetected) Ur Oxycodone Screen (NotDetected) Urine Methadone Screen (NotDetected) Ur Propoxyphene Screen (NotDetected) Ur Barbiturates Screen (NotDetected) U Tricyclic Antidepress (NotDetected) Ur Phencyclidine Scrn (NotDetected) Ur Amphetamines Screen (NotDetected) U Methamphetamines Scrn (NotDetected) U Benzodiazepines Scrn (NotDetected) Urine Cocaine Screen (NotDetected) U Marijuana (THC) Screen (NotDetected) Serum Alcohol 78 mg/dL 08/23/19 Range/Units 18:45 WBC (3.8-10.6) k/uL RBC (4.30-5.90) m/uL Hgb (13.0-17.5) gm/dL Hct (39.0-53.0) % MCV (80.0-100.0) fL MCH (25.0-35.0) pg MCHC (31.0-37.0) g/dL RDW (11.5-15.5) % Plt Count (150-450) k/uL Neutrophils % % Lymphocytes % % Monocytes % % Eosinophils % % Basophils % % Neutrophils # (1.3-7.7) k/uL Lymphocytes # (1.0-4.8) k/uL Monocytes # (0-1.0) k/uL Eosinophils # (0-0.7) k/uL Basophils # (0-0.2) k/uL PT (9.0-12.0) sec INR (<1.2) APTT (22.0-30.0) sec Sodium (137-145) mmol/L Potassium (3.5-5.1) mmol/L Chloride (98-107) mmol/L Carbon Dioxide (22-30) mmol/L Anion Gap mmol/L BUN (9-20) mg/dL Creatinine (0.66-1.25) mg/dL Est GFR (CKD-EPI)AfAm (>60 ml/min/1.73 sqM) Est GFR (CKD-EPI)NonAf (>60 ml/min/1.73 sqM) Glucose (74-99) mg/dL Calcium (8.4-10.2) mg/dL Total Bilirubin (0.2-1.3) mg/dL AST (17-59) U/L ALT (4-49) U/L Alkaline Phosphatase (38-126) U/L Total Protein (6.3-8.2) g/dL Albumin (3.5-5.0) g/dL Urine Color Yellow Urine Appearance Clear (Clear) Urine pH 6.0 (5.0-8.0) Ur Specific [place] 1.014 (1.001-1.035) Urine Protein Negative (Negative) Urine Glucose (UA) Negative (Negative) Urine Ketones Negative (Negative) Urine Blood Negative (Negative) Urine Nitrite Negative (Negative) Urine Bilirubin Negative (Negative) Urine Urobilinogen <2.0 (<2.0) mg/dL Ur Leukocyte Esterase Negative (Negative) Urine Opiates Screen Not Detected (NotDetected) Ur Oxycodone Screen Not Detected (NotDetected) Urine Methadone Screen Not Detected (NotDetected) Ur Propoxyphene Screen Not Detected (NotDetected) Ur Barbiturates Screen Not Detected (NotDetected) U Tricyclic Antidepress Not Detected (NotDetected) Ur Phencyclidine Scrn Not Detected (NotDetected) Ur Amphetamines Screen Not Detected (NotDetected) U Methamphetamines Scrn Not Detected (NotDetected) U Benzodiazepines Scrn Not Detected (NotDetected) Urine Cocaine Screen Not Detected (NotDetected) U Marijuana (THC) Screen Not Detected (NotDetected) Serum Alcohol mg/dL Disposition Clinical Impression: Fall, Concussion, Alcohol intoxication Disposition: HOME SELF-CARE Condition: Fair Instructions (If sedation given, give patient instructions): Concussion (ED) Prescriptions: Ibuprofen [Motrin] 600 mg PO Q8HR PRN #24 tab PRN Reason: Pain HYDROcodone/APAP 5-325MG [[place] 5-325] 1 tab PO Q6HR PRN #12 tab PRN Reason: Pain Is patient prescribed a controlled substance at d/c from ED?: No Referrals: Ping Leon MD [Primary Care Provider] - 1-2 days Aron Campos DO [Doctor of Osteopathic Medicine] - 1-2 days Time of Disposition: 20:04
[2019-08-23 19:03] LABS: Basophils # (A) 0.1 k/uL (0-0.2); Basophils % (A) 1 %; Eosinophils # (A) 0.3 k/uL (0-0.7); Eosinophils % (A) 3 %; HCT 43.7 % (39.0-53.0); HGB 14.8 gm/dL (13.0-17.5); Lymphocytes # (A) 2.6 k/uL (1.0-4.8); Lymphocytes % (A) 30 %; MCH 32.1 pg (25.0-35.0); MCV 94.6 fL (80.0-100.0); Mean Platelet Volume 7.1; Monocytes # (A) 0.3 k/uL (0-1.0); Monocytes % (A) 4 %; Neutrophils # (A) 5.1 k/uL (1.3-7.7); Neutrophils % (A) 60 %; Platelet Count 295 k/uL (150-450); RBC 4.62 m/uL (4.30-5.90); RDW 12.4 % (11.5-15.5); WBC 8.5 k/uL (3.8-10.6)
[2019-08-23 19:04] LABS: Appearance,Urine Clear (Clear); Bilirubin,Urine Negative (Negative); Blood,Urine Negative (Negative); Color,Urine Yellow; Glucose,Urine (UA) Negative (Negative); Ketones,Urine Negative (Negative); Leukocyte Esterase,Urine Negative (Negative); Nitrite,Urine Negative (Negative); Protein,Urine Negative (Negative); Specific Gravity,Urine 1.014 (1.001-1.035); Urobilinogen,Urine <2.0 mg/dL (<2.0)
[2019-08-23 19:13] LABS: ALT 19 U/L (4-49); AST 25 U/L (17-59); African American GFR (CKD) >90 (>60 ml/min/1.73 sqM); Albumin 4.1 g/dL (3.5-5.0); Alcohol 78 mg/dL; Alkaline Phosphatase 51 U/L (38-126); Anion Gap 8 mmol/L; Blood Urea Nitrogen 9 mg/dL (9-20); Calcium 8.9 mg/dL (8.4-10.2); Carbon Dioxide 24 mmol/L (22-30); Chloride 109 mmol/L (98-107); Glucose 89 mg/dL (74-99); Non-African American GFR(CKD) >90 (>60 ml/min/1.73 sqM); Potassium 4.9 mmol/L (3.5-5.1); Sodium 141 mmol/L (137-145); Total Bilirubin 0.4 mg/dL (0.2-1.3); Total Protein 6.8 g/dL (6.3-8.2)
[2019-08-23 19:18] LABS: Amphetamine Screen,Urine Not Detected (NotDetected); Barbiturate Screen,Urine Not Detected (NotDetected); Benzodiazepines Screen,Urine Not Detected (NotDetected); Cocaine Screen,Urine Not Detected (NotDetected); Methadone Screen, Urine Not Detected (NotDetected); Opiate Screen,Urine Not Detected (NotDetected); Oxycodone Screen, Urine Not Detected (NotDetected); Phencyclidine Screen,Urine Not Detected (NotDetected); Tricyclic Antidepressant,Urine Not Detected (NotDetected); Urn Cannabinoid Scrn Not Detected (NotDetected)
[2019-08-23 19:20] LABS: INR 0.9 (<1.2); Partial Thromboplastin Time 22.1 sec (22.0-30.0); Prothrombin Time 9.8 sec (9.0-12.0)
--- NOTE | 2019-08-23 19:33 | CT ---
EXAMINATION TYPE: CT brain cspine wo con DATE OF EXAM: 08/23/2019 COMPARISON: 07/12/2013 and 06/04/2017 HISTORY: Fall, neck pain. CT DLP: 1400.5 mGycm Automated exposure control for dose reduction was used. Ventricles have normal size. There is no mass effect nor midline shift. There is no sign of intracran ial hemorrhage. There is some mucosal thickening in the maxillary sinuses. The calvarium is intact. T here is ethmoid and sphenoid and frontal sinus mucosal thickening also. Cervical vertebra have normal alignment. There is plate and screws fusing anteriorly C5 and C6 and C7 . Posterior elements are intact. Atlantoaxial facet joint is normal. There are no cervical ribs. IMPRESSION: Negative CT scan of the brain. No acute intracranial abnormality. Pansinusitis. Sinusitis appears inc reased compared to old exam. Cervical spine unchanged compared to old exam.
--- NOTE | 2019-08-23 19:34 | XR ---
EXAMINATION TYPE: XR chest 2V DATE OF EXAM: 08/23/2019 COMPARISON: 04/02/2016 HISTORY: Fall. Chest pain TECHNIQUE: FINDINGS: Heart is normal. Lungs are clear. Diaphragm is normal. There are chest leads. Bony thorax a ppears intact. IMPRESSION: Normal chest. No change.
[2019-08-23] MEDS ORDERED: KETOROLAC 30 MG/ML 1 ML VIAL IVP STA (20:09)
[2019-08-23 20:33] VITALS: RESP 18
[2019-08-23 21:12] VITALS: BP 128/76; PULSE 61; TEMP 98
== END 2019-08-23 21:14 | disposition home or self-care (01) ==
LOC: EC 17:21
DX: S06.0X9A Concussion with loss of consciousness of unspecified duration, initial encounter (principal); F10.129 Alcohol abuse with intoxication, unspecified; S00.83XA Contusion of other part of head, initial encounter; Z98.1 Arthrodesis status; F17.200 Nicotine dependence, unspecified, uncomplicated; Z23 Encounter for immunization; W00.0XXA Fall on same level due to ice and snow, initial encounter; Y90.3 Blood alcohol level of 60-79 mg/100 ml; Y93.89 Activity, other specified; Y92.89 Other specified places as the place of occurrence of the external cause
CPT/HCPCS: 82075; 36415; 80053; 85025; 85610; 85730; 81003; 80306; 71046; 72125; 70450; 90715; 99284; 96374; 96361; 90471; G0480; J1885; 80320

== ENCOUNTER 2022-08-14 14:48 | Emergency (ER) | payer MEDICARE ==
[2022-08-14 15:40] VITALS: TEMP 97.2
--- NOTE | 2022-08-14 15:43 | ED ---
Neck Injury/Pain HPI - General Source: patient Mode of arrival: ambulatory - History of Present Illness MD Complaint: neck pain -: week(s) (1) Severity: constant <Shalom Saavedra - Last Filed: 08/14/22 15:41> <China Brunson - Last Filed: 08/14/22 22:33> - General Chief Complaint: Neck Pain/Injury Stated Complaint: neck pain/plate Time Seen by Provider: 08/14/22 15:38 - History of Present Illness Initial Comments: 56-year-old male presents to the emergency room ambulatory with complaints of chronic neck pain worsening over the past week. Patient did have neck surgery approximately 7 years ago and does have chronic neck pain. He states that the p ain is getting worse and is having difficulty laying flat. Denies any trauma. (Shalom Saavedra) Denies trauma although does admitting to pulling his neck the wrong way while moving his couch at home which did result in neck pain. Patient has pain over the left side of his neck with numbness and tingling down the left leg. No loss of bowel or bladder function. No saddle anesthesia. (China Brunson) - Related Data Previous Rx's Medication Instructions Recorded HYDROcodone/APAP 5-325MG [Alloy 1 tab PO Q6HR PRN #12 tab 08/23/19 5-325] Ibuprofen [Motrin] 600 mg PO Q8HR PRN #24 tab 08/23/19 Ketorolac [Toradol] 10 mg PO Q8H PRN #15 tab 08/14/22 Lidocaine 5% Patch [Lidoderm 5% 1 patch TOPICAL DAILY #5 patch 08/14/22 Patch] predniSONE 50 mg PO DAILY #5 tab 08/14/22 Allergies Allergy/AdvReac Type Severity Reaction Status Date / Time No Known Allergies Allergy Verified 08/14/22 15:40 Review of Systems ROS Other: All systems not noted in ROS Statement are negative. <Shalom Saavedra - Last Filed: 08/14/22 15:41> ROS Other: All systems not noted in ROS Statement are negative. <China Brunson - Last Filed: 08/14/22 22:33> ROS Statement: Those systems with pertinent positive or pertinent negative responses have been documented in the HPI. Past Medical History Past Medical History: Unable to Obtain Additional Past Medical History / Comment(s): C/O of R shoulder and back pain., chronic neck pain History of Any Multi-Drug Resistant Organisms: None Reported Past Surgical History: Orthopedic Surgery Additional Past Surgical History / Comment(s): Repair of broken nose in February 2015. Epidural injections to his neck. Rotater cuff sx Past Anesthesia/Blood Transfusion Reactions: No Reported Reaction Past Psychological History: No Psychological Hx Reported Past Alcohol Use History: Occasional Past Drug Use History: None Reported - Past Family History Mother Family Medical History: Cancer Additional Family Medical History / Comment(s): Unknown <QuentinShalom - Last Filed: 08/14/22 15:41> General Exam General appearance: alert, in no apparent distress Head exam: Present: atraumatic, normocephalic, normal inspection Eye exam: Present: normal appearance, PERRL, EOMI. Absent: scleral icterus, conjunctival injection, periorbital swelling Neck exam: Present: normal inspection, tenderness (left paravertebral muscles and mid cervical vertebrae), full ROM. Absent: lymphadenopathy Respiratory exam: Present: normal lung sounds bilaterally. Absent: respiratory distress, wheezes, rales, rhonchi, stridor Cardiovascular Exam: Present: regular rate, normal rhythm, normal heart sounds. Absent: systolic murmur, diastolic murmur, rubs, gallop, clicks Extremities exam: Present: normal inspection, normal capillary refill Neurological exam: Present: alert, oriented X3, CN II-XII intact Psychiatric exam: Present: normal affect, normal mood Skin exam: Present: warm, dry, intact, normal color. Absent: rash <China Brunson - Last Filed: 08/14/22 22:33> Course Vital Signs 08/14/22 08/14/22 15:37 18:47 Temperature 97.2 F L Pulse Rate 69 80 Respiratory 16 18 Rate Blood Pressure 115/41 132/78 O2 Sat by Pulse 97 100 Oximetry Medical Decision Making <China Brunson - Last Filed: 08/14/22 22:33> - Medical Decision Making Was pt. sent in by a medical professional or institution (, PA, PACKAGE DRIER, urgent care, hospital, or skilled nursing...) When possible be specific @ -[No] Did you speak to anyone other than the patient for history (EMS, parent, family, police, friend...)? What history was obtained from this source @ -[No] Did you review nursing and triage notes (agree or disagree)? Why? @ -[I reviewed and agree with nursing and triage notes] Were old charts reviewed (outside hosp., previous admission, EMS record, old EKG, old radiological studies, urgent care reports/EKG's, skilled nursing records)? Report findings @ -[No old charts were reviewed] Differential Diagnosis (chest pain, altered mental status, abdominal pain women, abdominal pain men, vaginal bleeding, weakness, fever, dyspnea, syncope, headache, dizziness, GI bleed, back pain, seizure, CVA, palpatations, mental health)? @ -neck strain, disc herniation, fracture, stenosis, DDD EKG interpreted by me (3pts min.). @ -[As above] X-rays interpreted by me (1pt min.). @ -Yes. cervical spine xray shows at least mild mutilevel neural foraminal stenosis. Postsurgical hardware in appropriate position and intact CT interpreted by me (1pt min.). @ -[None done] U/S interpreted by me (1pt. min.). @ -[None done] What testing was considered but not performed or refused? (CT, X-rays, U/S, labs)? Why? @ -[None] What meds were considered but not given or refused? Why? @ -[None] Did you discuss the management of the patient with other professionals (professionals i.e. , PA, PACKAGE DRIER, lab, RT, psych nurse, high school social studies teacher, nursing techn, teacher, personnel officer, assistant case manager)? Give summary @ -[No] Was smoking cessation discussed for >3mins.? @ -[No] Was critical care preformed (if so, how long)? @ -[No] Were there social determinants of health that impacted care today? How? (Homelessness, low income, unemployed, alcoholism, drug addiction, transportation, low edu. Level, literacy, decrease access to med. care, group home, rehab)? @ -[No] Was there de-escalation of care discussed even if they declined (Discuss DNR or withdrawal of care, Hospice)? DNR status @ -[No] What co-morbidities impacted this encounter? (DM, HTN, Smoking, COPD, CAD, Cancer, CVA, ARF, Chemo, Hep., AIDS, mental health diagnosis, sleep apnea, morbid obesity)? @ -[None] Was patient admitted / discharged? Hospital course, mention meds given and route, prescriptions, significant lab abnormalities, going to OR and other pertinent info. @ This is a 56-year-old male presenting with acute on chronic neck pain. Patient presenting with radicular symptoms. X-ray does show multilevel neural foraminal stenosis. Pain improved with medication in the emergency department. I do feel the patient will benefit from 5 day course of steroids. Patient will be sent home with prednisone and pain medication. He no longer has emergency medicine specialist. He will be referred. Undiagnosed new problem with uncertain prognosis? @ -[No] Drug Therapy requiring intensive monitoring for toxicity (Heparin, Nitro, In sulin, Cardizem)? @ -[No] Were any procedures done? @ -[No] Diagnosis/symptom? @ -cervical radiculopathy Acute, or Chronic, or Acute on Chronic? @ -acute on chronic Uncomplicated (without systemic symptoms) or Complicated (systemic symptoms)? @ -[default] Side effects of treatment? @ -[No] Exacerbation, Progression, or Severe Exacerbation? @ progression Poses a threat to life or bodily function? How? (Chest pain, [place], [place], pneumonia, PE, COPD, DKA, ARF, appy, cholecystitis, CVA, Diverticulitis, Homicidal, Suicidal, threat to staff... and all critical care pts) @ -[No] Dr. Mcfarlane is my attending. (China Brunson) Disposition <Shalom Saavedra - Last Filed: 08/14/22 15:41> Is patient prescribed a controlled substance at d/c from ED?: No <China Brunson - Last Filed: 08/14/22 22:33> Clinical Impression: Cervical radiculopathy Disposition: HOME SELF-CARE Condition: Good Instructions (If sedation given, give patient instructions): Cervical Radiculopathy (ED) Additional Instructions: Take medication as directed. Do not take Motrin or other anti-inflammatories while taking Toradol. Follow-up with emergency medicine specialist in 1-2 days. Return to the emergency department experience new, concerning, or worsening symptoms. Prescriptions: Lidocaine 5% Patch [Lidoderm 5% Patch] 1 patch TOPICAL DAILY #5 patch predniSONE 50 mg PO DAILY #5 tab Ketorolac [Toradol] 10 mg PO Q8H PRN #15 tab PRN Reason: Pain Referrals: Ping Leon MD [Primary Care Provider] - 1-2 days Hal Bartlett DO [Doctor of Osteopathic Medicine] - 1-2 days
--- NOTE | 2022-08-14 16:28 | XR ---
EXAMINATION TYPE: XR cervical spine comp DATE OF EXAM: 08/14/2022 4:16 PM INDICATION: Patient age:Male; 56 years old; Reason for study: pain; . COMPARISON: 03/04/2015 TECHNIQUE: The cervical spine was imaged in frontal, lateral, odontoid and bilateral oblique. FINDINGS: Interval fixation hardware anteriorly. Hardware appears intact. Scattered facet joint arthr opathy throughout the spine. The osseous structures show normal alignment without evidence of an acute fracture. No significant ve rtebral body osteophytes or facet joint arthropathy. The intervertebral disk spaces are preserved. P edicles are intact. Soft tissues are within normal limits. The odontoid appears intact. IMPRESSION: Postsurgical changes to the spine with hardware in appropriate position and intact. At least mild mul tilevel neural foraminal stenosis suggested.
[2022-08-14] MEDS ORDERED: methylPREDNISolone SOD SUCCI 125 MG/2 ML VIAL IM ONE (17:08)
[2022-08-14] MEDS ORDERED: LIDOCAINE 5% PATCH TOPICAL STA (17:09)
[2022-08-14] MEDS ORDERED: KETOROLAC 15 MG/ML 1 ML VIAL IM STA (17:09)
[2022-08-14] MEDS ORDERED: ACET/COD 300 MG/30 MG STARTER PACK 6 TAB BTL PO STA (18:20)
[2022-08-14 18:49] VITALS: BP 132/78; PULSE 80; RESP 18
== END 2022-08-14 18:48 | disposition home or self-care (01) ==
LOC: EC 14:48
DX: M54.12 Radiculopathy, cervical region (principal)
CPT/HCPCS: 72050; 99283; 96372 ×2; J2930; J1885

== ENCOUNTER 2024-01-20 15:17 | Emergency (ER) | payer MEDICARE ==
[2024-01-20 15:28] VITALS: RESP 18
[2024-01-20] MEDS: KETOROLAC 15 MG/ML 1 ML VIAL IM STA (16:43)
[2024-01-20] MEDS: ORPHENADRINE 30 MG/ML 2 ML VIAL IM STA (16:43)
--- NOTE | 2024-01-20 16:47 | ED ---
General Adult HPI - General Chief complaint: Back Pain/Injury Stated complaint: spine pain Time Seen by Provider: 01/20/24 16:06 Source: patient, RN notes reviewed Mode of arrival: ambulatory Limitations: no limitations - History of Present Illness Initial comments: 58-year-old male presents to the emergency department for evaluation of neck pain, back pain. Patient states that around 1 week ago, he made a movement that caused him some pain in his neck. He states that since then the pain has gotten significantly worse. He admits to tingling in his left upper extremity. He does have a history of neck surgery and has a plate in his neck. He reports that this was many years ago. He denies loss of bowel or bladder function, saddle anesthesia. Denies recent illness, fever. - Related Data Previous Rx's Medication Instructions Recorded HYDROcodone/APAP 5-325MG [Pavo 1 tab PO Q6HR PRN #12 tab 08/23/19 5-325] Ibuprofen [Motrin] 600 mg PO Q8HR PRN #24 tab 08/23/19 Ketorolac [Toradol] 10 mg PO Q8H PRN #15 tab 08/14/22 Lidocaine 5% Patch [Lidoderm 5% 1 patch TOPICAL DAILY #5 patch 08/14/22 Patch] predniSONE 50 mg PO DAILY #5 tab 08/14/22 Albuterol Inhaler [Ventolin Hfa 2 puff INHALATION QID #8 gm 09/20/22 Inhaler] Azithromycin [Zithromax Z Pack] 250 mg PO DAILY #4 tab 09/20/22 predniSONE [Deltasone] 20 mg PO BID #10 tab 09/20/22 Albuterol Inhaler [Ventolin Hfa 1 - 2 puff INHALATION Q6H PRN #1 12/30/23 Inhaler] each Ketorolac [Toradol] 10 mg PO Q8HR #15 tab 01/20/24 Lidocaine 5% Patch [Lidoderm 5% 1 patch TOPICAL DAILY #30 patch 01/20/24 Patch] Allergies Allergy/AdvReac Type Severity Reaction Status Date / Time No Known Allergies Allergy Verified 01/20/24 15:28 Review of Systems ROS Statement: Those systems with pertinent positive or pertinent negative responses have been documented in the HPI. ROS Other: All systems not noted in ROS Statement are negative. Past Medical History Past Medical History: Unable to Obtain Additional Past Medical History / Comment(s): C/O of R shoulder and back pain., chronic neck pain History of Any Multi-Drug Resistant Organisms: None Reported Past Surgical History: Orthopedic Surgery Additional Past Surgical History / Comment(s): Repair of broken nose in February 2015. Epidural injections to his neck. Rotater cuff sx Past Anesthesia/Blood Transfusion Reactions: No Reported Reaction Past Psychological History: No Psychological Hx Reported Smoking Status: Current every day smoker Past Alcohol Use History: Occasional Past Drug Use History: None Reported - Past Family History Mother Family Medical History: Cancer Additional Family Medical History / Comment(s): Unknown General Exam Limitations: no limitations General appearance: alert, in no apparent distress Head exam: Present: atraumatic, normocephalic, normal inspection Eye exam: Present: normal appearance, PERRL, EOMI. Absent: scleral icterus, conjunctival injection, periorbital swelling ENT exam: Present: normal exam, mucous membranes moist Neck exam: Present: tenderness. Absent: normal inspection, meningismus, full ROM (decreased ROM due to pain), lymphadenopathy Respiratory exam: Present: normal lung sounds bilaterally. Absent: respiratory distress, wheezes, rales, rhonchi, stridor Cardiovascular Exam: Present: regular rate, normal rhythm, normal heart sounds. Absent: systolic murmur, diastolic murmur, rubs, gallop, clicks Extremities exam: Present: normal inspection, full ROM, normal capillary refill. Absent: tenderness, pedal edema, joint swelling, calf tenderness Neurological exam: Present: alert, oriented X3 Psychiatric exam: Present: normal affect, normal mood Skin exam: Present: warm, dry, intact, normal color. Absent: rash Course Vital Signs 01/20/24 01/20/24 15:27 18:19 Temperature 98.0 F 98.4 F Pulse Rate 70 84 Respiratory 18 18 Rate Blood Pressure 126/78 130/78 O2 Sat by Pulse 100 99 Oximetry Medical Decision Making - Medical Decision Making Was pt. sent in by a medical professional or institution (, PA, DOOR MANAGER, urgent care, hospital, or senior living...) When possible be specific @ -No Did you speak to anyone other than the patient for history (EMS, parent, family, police, friend...)? What history was obtained from this source @ -No Did you review nursing and triage notes (agree or disagree)? Why? @ -I reviewed and agree with nursing and triage notes Were old charts reviewed (outside hosp., previous admission, EMS record, old EKG, old radiological studies, urgent care reports/EKG's, senior living records)? Report findings @ -No old charts were reviewed Differential Diagnosis (chest pain, altered mental status, abdominal pain women, abdominal pain men, vaginal bleeding, weakness, fever, dyspnea, syncope, headache, dizziness, GI bleed, back pain, seizure, CVA, palpatations, mental health, musculoskeletal)? @ -Differential Back Pain: Strain, zoster, cauda equina syndrome, epidural abscess, vertebral osteomyelitis, discitis, fracture, subluxation, disc herniation, DJD, spinal stenosis, dissection, AAA, pancreatitis, peptic ulcer disease, pyelonephritis, kidney stone, this is not meant to be an all-inclusive list. EKG interpreted by me (3pts min.). @ -None X-rays interpreted by me (1pt min.). @ -Cervical spine x-ray shows severe left foraminal stenosis CT interpreted by me (1pt min.). @ -None done U/S interpreted by me (1pt. min.). @ -None done What testing was considered but not performed or refused? (CT, X-rays, U/S, labs)? Why? @ -None What meds were considered but not given or refused? Why? @ -None Did you discuss the management of the patient with other professionals (professionals i.e. , PA, DOOR MANAGER, lab, RT, psych nurse, 7th grade social studies teacher, court commissioner, teacher, chairman and chief executive officer, oil field caser)? Give summary @ -No Was smoking cessation discussed for >3mins.? @ -No Was critical care preformed (if so, how long)? @ -No Were there social determinants of health that impacted care today? How? (Homelessness, low income, unemployed, alcoholism, drug addiction, transportation, low edu. Level, literacy, decrease access to med. care, care home, rehab)? @ -No Was there de-escalation of care discussed even if they declined (Discuss DNR or withdrawal of care, Hospice)? DNR status @ -No What co-morbidities impacted this encounter? (DM, HTN, Smoking, COPD, CAD, Cancer, CVA, ARF, Chemo, Hep., AIDS, mental health diagnosis, sleep apnea, morbid obesity)? @ -None Was patient admitted / discharged? Hospital course, mention meds given and route, prescriptions, significant lab abnormalities, going to OR and other pertinent info. @ -Discharged. Patient presented to the emergency department for evaluation of neck pain. Patient reports prior surgery on his neck many years ago. He states that he moves his neck around a few days ago and has had pain since then. He denies any loss of bowel or bladder function, urinary retention, fever, chills. X-rays of the cervical spine were obtained which show severe left foraminal stenosis. Patient was provided medication for pain control while in the emergency department. He was advised to follow-up with orthopedics. He is understanding agreeable with this plan. Patient stable at time of discharge. Case discussed with Dr. Goff Undiagnosed new problem with uncertain prognosis? @ -No Drug Therapy requiring intensive monitoring for toxicity (Heparin, Nitro, Insulin, Cardizem)? @ -No Were any procedures done? @ -No Diagnosis/symptom? @ -Cervical radiculopathy Acute, or Chronic, or Acute on Chronic? @ -acute Uncomplicated (without systemic symptoms) or Complicated (systemic symptoms)? @ -uncomplicated Side effects of treatment? @ -No Exacerbation, Progression, or Severe Exacerbation? @ -No Poses a threat to life or bodily function? How? (Chest pain, [place], [place], pneumonia, PE, COPD, DKA, ARF, appy, cholecystitis, CVA, Diverticulitis, Homicidal, Suicidal, threat to staff... and all critical care pts) @ -No Disposition Clinical Impression: Neck pain, Radiculopathy Disposition: HOME SELF-CARE Condition: Stable Instructions (If sedation given, give patient instructions): Cervical Strain (ED) Additional Instructions: Do not take any other anti-inflammatory medications while taking toradol. Please follow up with orthopedics. Return to the emergency department for new or worse natalie symptoms. Prescriptions: Lidocaine 5% Patch [Lidoderm 5% Patch] 1 patch TOPICAL DAILY #30 patch Ketorolac [Toradol] 10 mg PO Q8HR #15 tab Is patient prescribed a controlled substance at d/c from ED?: No Referrals: Ping Leon MD [Primary Care Provider] - 1-2 days Hal Bartlett DO [Doctor of Osteopathic Medicine] - 1-2 days
[2024-01-20] MEDS: LIDOCAINE 4% PATCH TOPICAL ONE (16:50)
--- NOTE | 2024-01-20 17:12 | XR ---
EXAMINATION TYPE: XR cervical spine comp DATE OF EXAM: 01/20/2024 COMPARISON: 08/14/2022 HISTORY: Neck pain TECHNIQUE: 5 view cervical spine FINDINGS: Anterior cervical fusion plate of C5-C7 is evident. There is fusion through these levels. L arge anterior vertebral body spur is present C4. Posterior spinal lamellar line is intact. Upper cerv ical spine disc levels are preserved. There is severe foraminal stenosis on the left at C2-3 C3-4. Ri ght foramen are patent. Odontoid tip is limited with overlying occiput. No significant interval vazquez es from the comparison is evident. IMPRESSION: 1. Severe left foraminal stenosis at C2-3 and C3-4. 2. Prior anterior cervical fusion.
[2024-01-20] MEDS: ACET/COD 300 MG/30 MG STARTER PACK 6 TAB BTL PO STA (18:15)
[2024-01-20] MEDS: HYDROmorphone 0.5 MG/0.5 ML SYRINGE IM STA (18:15)
[2024-01-20 18:20] VITALS: BP 130/78; PULSE 84; TEMP 98.4
== END 2024-01-20 18:36 | disposition home or self-care (01) ==
LOC: EC 15:17
DX: M54.12 Radiculopathy, cervical region (principal); M48.02 Spinal stenosis, cervical region; F17.200 Nicotine dependence, unspecified, uncomplicated
CPT/HCPCS: 72050; 99284; 96372 ×3; J2360; J1885; J1170

== ENCOUNTER 2024-04-10 18:27 | Emergency (ER) | payer MEDICARE ==
[2024-04-10 19:06] VITALS: TEMP 98
--- NOTE | 2024-04-10 19:33 | ED ---
Neck Injury/Pain HPI - General Source: RN notes reviewed Mode of arrival: ambulatory Limitations: no limitations <Eve Mattson - Last Filed: 04/10/24 19:32> <Amor Do - Last Filed: 04/11/24 17:05> - General Chief Complaint: Neck Pain/Injury Stated Complaint: stiff neck Time Seen by Provider: 04/10/24 19:32 - History of Present Illness Initial Comments: Quick [id number] male presenting with neck pain x 2 days. States he made a sudden movement 2 days ago and has been having spasms in his neck since. He has a history of a plate in his neck and states "something feels out of place". He does admit some intermittent tingling in his hands. (Eve Mattson) 58-year-old male presenting with chief complaint of back pain. Pain has been ongoing for 2 days. He is having spasming pain. Patient previously had surgery 10 years ago, has not seen a surgeon recently. He is getting some tingling in the hands. He has full range of motion and strength of the arms. No injury or trauma. No fevers. (Amor Do) - Related Data Previous Rx's Medication Instructions Recorded HYDROcodone/APAP 5-325MG [[place] 1 tab PO Q6HR PRN #12 tab 08/23/19 5-325] Ibuprofen [Motrin] 600 mg PO Q8HR PRN #24 tab 08/23/19 Ketorolac [Toradol] 10 mg PO Q8H PRN #15 tab 08/14/22 Lidocaine 5% Patch [Lidoderm 5% 1 patch TOPICAL DAILY #5 patch 08/14/22 Patch] predniSONE 50 mg PO DAILY #5 tab 08/14/22 Albuterol Inhaler [Ventolin Hfa 2 puff INHALATION QID #8 gm 09/20/22 Inhaler] Azithromycin [Zithromax Z Pack] 250 mg PO DAILY #4 tab 09/20/22 predniSONE [Deltasone] 20 mg PO BID #10 tab 09/20/22 Albuterol Inhaler [Ventolin Hfa 1 - 2 puff INHALATION Q6H PRN #1 12/30/23 Inhaler] each Ketorolac [Toradol] 10 mg PO Q8HR #15 tab 01/20/24 Lidocaine 5% Patch [Lidoderm 5% 1 patch TOPICAL DAILY #30 patch 01/20/24 Patch] Cyclobenzaprine [Flexeril] 10 mg PO TID PRN #15 tab 04/11/24 Ketorolac [Toradol] 10 mg PO Q8HR PRN #15 tab 04/11/24 Lidocaine 5% Patch [Lidoderm 5% 1 patch TOPICAL DAILY PRN #30 patch 04/11/24 Patch] Allergies Allergy/AdvReac Type Severity Reaction Status Date / Time No Known Allergies Allergy Verified 04/10/24 19:05 Review of Systems ROS Other: All systems not noted in ROS Statement are negative. <MattsonEve - Last Filed: 04/10/24 19:32> ROS Other: All systems not noted in ROS Statement are negative. <Amor Do - Last Filed: 04/11/24 17:05> ROS Statement: Those systems with pertinent positive or pertinent negative responses have been documented in the HPI. Past Medical History Past Medical History: Unable to Obtain Additional Past Medical History / Comment(s): C/O of R shoulder and back pain., chronic neck pain History of Any Multi-Drug Resistant Organisms: None Reported Past Surgical History: Orthopedic Surgery Additional Past Surgical History / Comment(s): Repair of broken nose in February 2015. Epidural injections to his neck. Rotater cuff sx Past Anesthesia/Blood Transfusion Reactions: No Reported Reaction Past Psychological History: No Psychological Hx Reported Smoking Status: Current every day smoker Past Alcohol Use History: Occasional Past Drug Use History: None Reported - Past Family History Mother Family Medical History: Cancer Additional Family Medical History / Comment(s): Unknown <Eve Mattson - Last Filed: 04/10/24 19:32> General Exam Limitations: no limitations <Eve Mattson - Last Filed: 04/10/24 19:32> General appearance: alert, in no apparent distress Head exam: Present: atraumatic, normocephalic Eye exam: Present: normal appearance, PERRL, EOMI Neck exam: Present: normal inspection, tenderness (Muscle spasming) Respiratory exam: Absent: respiratory distress Cardiovascular Exam: Present: regular rate Neurological exam: Present: alert, oriented X3 Expanded Sensory exam: Upper Extremity Light Touch: Normal, Lower Extremity Light Touch: Normal Motor strength exam: RUE: 5, LUE: 5, RLE: 5, LLE: 5 Eye Response: (4) open spontaneously Motor Response: (6) obeys commands Verbal Response: (5) oriented Psychiatric exam: Present: normal affect, normal mood Skin exam: Present: warm, dry <Amor Do - Last Filed: 04/11/24 17:05> - General Exam Comments Initial Comments: Visual Physical Exam Vital signs reviewed General: Well-appearing, nontoxic, no acute distress. Head: Normocephalic, atraumatic Eyes: PERRLA, EOMI ENT: Airway patent Chest: Nonlabored breathing Skin: No visual rash, normal skin tone Neuro: Alert and oriented 3 Musculoskeletal: No gross abnormalities (Eve Mattson) Course Vital Signs 04/10/24 04/11/24 04/11/24 19:04 01:26 04:18 Temperature 98 F Pulse Rate 75 71 68 Respiratory 20 20 18 Rate Blood Pressure 168/90 161/96 129/67 O2 Sat by Pulse 99 99 98 Oximetry Medical Decision Making <Eve Mattson - Last Filed: 04/10/24 19:32> <Amor Do - Last Filed: 04/11/24 17:05> - Medical Decision Making I completed the quick note portion of this chart signed Eve Mattson PA-C (Eve Mattson) Was pt. sent in by a medical professional or institution (LEDY Uribe, SHELTERED WORKSHOP EXECUTIVE DIRECTOR, urgent care, hospital, or intermediate...) When possible be specific @ -No Did you speak to anyone other than the patient for history (EMS, parent, family, police, friend...)? What history was obtained from this source @ -No Did you review nursing and triage notes (agree or disagree)? Why? @ -I reviewed and agree with nursing and triage notes Were old charts reviewed (outside hosp., previous admission, EMS record, old EKG, old radiological studies, urgent care reports/EKG's, intermediate records)? Report findings @ -No old charts were reviewed Differential Diagnosis (chest pain, altered mental status, abdominal pain women, abdominal pain men, vaginal bleeding, weakness, fever, dyspnea, syncope, headache, dizziness, GI bleed, back pain, seizure, CVA, palpatations, mental health, musculoskeletal)? @ -Differential Musculoskeletal Muscular strain, contusion, ligament sprain, fracture, arthritis, septic arthritis, bursitis, cellulitis, muscle spasm, nerve compression, DVT, arterial occlusion, herpes zoster, electrolyte abnormality, tumor.... This is not meant to be in all inclusive list EKG interpreted by me (3pts min.). @ -As above X-rays interpreted by me (1pt min.). @ -X-ray shows no acute radiographic abnormality. Status post ACDF C5-C6-C7 unchanged in appearance. Moderate left neural foraminal stenoses at C3-C4 and C4-C5 CT interpreted by me (1pt min.). @ -None done U/S interpreted by me (1pt. min.). @ -None done What testing was considered but not performed or refused? (CT, X-rays, U/S, labs)? Why? @ -None What meds were considered but not given or refused? Why? @ -None Did you discuss the management of the patient with other professionals (professionals i.e. , PA, SHELTERED WORKSHOP EXECUTIVE DIRECTOR, lab, RT, psych nurse, social media campaign manager, video operator, teacher, driver's license reviewing officer, senior portfolio manager)? Give summary @ -No Was smoking cessation discussed for >3mins.? @ -No Was critical care preformed (if so, how long)? @ -No Were there social determinants of health that impacted care today? How? (Homelessness, low income, unemployed, alcoholism, drug addiction, transportation, low edu. Level, literacy, decrease access to med. care, penitentiary, rehab)? @ -No Was there de-escalation of care discussed even if they declined (Discuss DNR or withdrawal of care, Hospice)? DNR status @ -No What co-morbidities impacted this encounter? (DM, HTN, Smoking, COPD, CAD, Cancer, CVA, ARF, Chemo, Hep., AIDS, mental health diagnosis, sleep apnea, morbid obesity)? @ -None Was patient admitted / discharged? Hospital course, mention meds given and route, prescriptions, significant lab abnormalities, going to OR and other pertinent info. @ -50-year-old male presenting chief complaint of neck pain. History of ACDF. No new injury or trauma. Workup is initiated by triage. X-ray shows no acute process. Patient is later placed in a room and evaluated by myself. No deficits. Reports improvement after pain medication. Instructed to follow-up with his surgeon, he states that he is unsure if his surgeon is still practicing, I provided him with referrals to Ortho spine in the area. Discharged home. Follow-up with PCP. Report back to ER with any new or worsening symptoms. Discussed return parameters and answered all questions. Patient conveyed verbal understanding and agreed to the plan. I discussed this case in detail with my attending Dr. Goff Undiagnosed new problem with uncertain prognosis? @ -No Drug Therapy requiring intensive monitoring for toxicity (Heparin, Nitro, Insulin, Cardizem)? @ -No Were any procedures done? @ -No Diagnosis/symptom? @ -Neck pain Acute, or Chronic, or Acute on Chronic? @ -Acute Uncomplicated (without systemic symptoms) or Complicated (systemic symptoms)? @ -Uncomplicated Side effects of treatment? @ -No Exacerbation, Progression, or Severe Exacerbation? @ -No Poses a threat to life or bodily function? How? (Chest pain, [place], [place], pneumonia, PE, COPD, DKA, ARF, appy, cholecystitis, CVA, Diverticulitis, Homicidal, Suicidal, threat to staff... and all critical care pts) @ -Unlikely (Amor Do) Disposition <Eve Mattson - Last Filed: 04/10/24 19:32> Is patient prescribed a controlled substance at d/c from ED?: No Time of Disposition: 03:55 <Amor Do - Last Filed: 04/11/24 17:05> Clinical Impression: Neck pain Disposition: HOME SELF-CARE Condition: Good Instructions (If sedation given, give patient instructions): Cervical Strain (ED) Additional Instructions: Follow-up with PCP and surgeon. Report back to ER with any new or worsening symptoms. Take medication as prescribed. Do not take cyclobenzaprine before driving or operating heavy machinery as it may cause drowsiness Prescriptions: Cyclobenzaprine [Flexeril] 10 mg PO TID PRN #15 tab PRN Reason: Spasms Lidocaine 5% Patch [Lidoderm 5% Patch] 1 patch TOPICAL DAILY PRN #30 patch PRN Reason: Pain Ketorolac [Toradol] 10 mg PO Q8HR PRN #15 tab PRN Reason: Pain Referrals: Ping Leon MD [Primary Care Provider] - 1-2 days Hal Bartlett DO [Doctor of Osteopathic Medicine] - 1-2 days Aron Campos DO [Doctor of Osteopathic Medicine] - 1-2 days
--- NOTE | 2024-04-10 22:18 | XR ---
EXAMINATION TYPE: XR cervical spine comp DATE OF EXAM: 04/10/2024 7:52 PM CLINICAL INDICATION:Male, 58 years old with history of Neck pain; [facility] COMPARISON: Cervical x-rays 01/20/2024 TECHNIQUE: The cervical spine was imaged in frontal, lateral, odontoid and bilateral oblique. FINDINGS: Status post ACDF C5-C6-C7 with interbody bony fusion redemonstrated and unchanged appearance of anter ior plate and screws. Anterior endplate spurring and probable disc marginal calcification C4-C5 again seen. There is normal alignment of the vertebral bodies. Upper cervical disc interspacing remains no rmal. No evidence for osseous destructive process. The prevertebral soft tissues appear stable and within normal limits. Carotid arterial calcifications in the right neck again seen. On the right, there is mild neural foraminal stenosis at each level from C2-C3 through C5-C6. On the left, there is moderate neuroforaminal stenosis C3-C4 and C4-C5, mild C5-C6. These findings do not seem significantly changed from previous. Dens appears intact and the lateral masses normally aligned. IMPRESSION: 1. No acute radiographic abnormality. 2. Status post ACDF C5-C6-C7, unchanged in appearance. 3. Moderate left neural foraminal stenoses at C3-C4 and C4-C5.
[2024-04-11] MEDS: DEXAMETHASONE SOD PHOSPHATE 10 MG/ML 1 ML VIAL IM STA (01:27)
[2024-04-11] MEDS: HYDROmorphone 1 MG/ML 1 ML SYRINGE IM STA (01:27)
[2024-04-11] MEDS: KETOROLAC 15 MG/ML 1 ML VIAL IM STA (03:51)
[2024-04-11 04:19] VITALS: BP 129/67; PULSE 68; RESP 18
== END 2024-04-11 05:04 | disposition home or self-care (01) ==
LOC: EC 18:27
CPT/HCPCS: 72050; 96372; 99283

== ENCOUNTER 2025-02-17 11:51 | Emergency (ER) | payer MEDICARE ==
--- NOTE | 2025-02-17 12:10 | ED ---
Upper Extremity HPI - General Chief Complaint: Extremity Injury, Upper Stated Complaint: R hand injury Time Seen by Provider: 02/17/25 12:01 Source: patient, RN notes reviewed Mode of arrival: ambulatory Limitations: no limitations - History of Present Illness Initial Comments: This is a 59-year-old male presenting for right index finger injury/pain (05/13) occurring yesterday. Patient states his finger was "caught in a door" with injury noted at the base of the finger. Patient denies any other significant injury. MD Complaint: Injury to:: right, hand, finger Onset/Timin -: hour(s) Other Extremity Injury: Fingers: Right, Hand: Right Other Injuries: none Severity scale (1-10): 10 Improves With: immobilization, rest Worsens With: movement of extremity Context: crush Associated Symptoms: denies other symptoms - Related Data Previous Rx's Medication Instructions Recorded HYDROcodone/APAP 5-325MG [[place] 1 tab PO Q6HR PRN #12 tab 08/23/19 5-325] Ibuprofen [Motrin] 600 mg PO Q8HR PRN #24 tab 08/23/19 Ketorolac [Toradol] 10 mg PO Q8H PRN #15 tab 08/14/22 Lidocaine 5% Patch [Lidoderm 5% 1 patch TOPICAL DAILY #5 patch 08/14/22 Patch] predniSONE 50 mg PO DAILY #5 tab 08/14/22 Albuterol Inhaler [Ventolin Hfa 2 puff INHALATION QID #8 gm 09/20/22 Inhaler] Azithromycin [Zithromax Z Pack] 250 mg PO DAILY #4 tab 09/20/22 predniSONE [Deltasone] 20 mg PO BID #10 tab 09/20/22 Albuterol Inhaler [Ventolin Hfa 1 - 2 puff INHALATION Q6H PRN #1 12/30/23 Inhaler] each Ketorolac [Toradol] 10 mg PO Q8HR #15 tab 01/20/24 Lidocaine 5% Patch [Lidoderm 5% 1 patch TOPICAL DAILY #30 patch 01/20/24 Patch] Cyclobenzaprine [Flexeril] 10 mg PO TID PRN #15 tab 04/11/24 Ketorolac [Toradol] 10 mg PO Q8HR PRN #15 tab 04/11/24 Lidocaine 5% Patch [Lidoderm 5% 1 patch TOPICAL DAILY PRN #30 patch 04/11/24 Patch] Ibuprofen [Motrin] 800 mg PO Q8HR PRN #30 tab 02/17/25 Allergies Allergy/AdvReac Type Severity Reaction Status Date / Time No Known Allergies Allergy Verified 04/10/24 19:05 Review of Systems ROS Statement: Those systems with pertinent positive or pertinent negative responses have been documented in the HPI. ROS Other: All systems not noted in ROS Statement are negative. Past Medical History Past Medical History: Unable to Obtain Additional Past Medical History / Comment(s): C/O of R shoulder and back pain., chronic neck pain History of Any Multi-Drug Resistant Organisms: None Reported Past Surgical History: Orthopedic Surgery Additional Past Surgical History / Comment(s): Repair of broken nose in February 2015. Epidural injections to his neck. Rotater cuff sx Past Anesthesia/Blood Transfusion Reactions: No Reported Reaction Past Psychological History: No Psychological Hx Reported Smoking Status: Current every day smoker Past Alcohol Use History: Occasional Past Drug Use History: None Reported - Past Family History Mother Family Medical History: Cancer Additional Family Medical History / Comment(s): Unknown General Exam Limitations: no limitations General appearance: alert, in no apparent distress Head exam: Present: atraumatic, normocephalic, normal inspection Eye exam: Present: normal appearance, PERRL, EOMI. Absent: scleral icterus, conjunctival injection, periorbital swelling ENT exam: Present: normal exam, mucous membranes moist Neck exam: Present: normal inspection. Absent: tenderness, meningismus, lymphadenopathy Respiratory exam: Present: normal lung sounds bilaterally. Absent: respiratory distress, wheezes, rales, rhonchi, stridor Cardiovascular Exam: Present: regular rate, normal rhythm, normal heart sounds. Absent: systolic murmur, diastolic murmur, rubs, gallop, clicks GI/Abdominal exam: Present: soft, normal bowel sounds. Absent: distended, tenderness, guarding, rebound, rigid Extremities exam: Present: tenderness (Positive right hand second MCP joint TTP and mild edema with no obvious open wound, crepitus, deformity), normal capi llary refill, joint swelling (Positive right second MCP joint mild edema), other (Positive RUE distal neurovascular and motor function intact. Capillary refill less than 2 seconds). Absent: pedal edema, calf tenderness Back exam: Present: normal inspection Neurological exam: Present: alert, oriented X3, CN II-XII intact Psychiatric exam: Present: normal affect, normal mood Skin exam: Present: warm, dry, intact, normal color. Absent: rash Course Vital Signs 02/17/25 02/17/25 11:59 14:24 Temperature 97.6 F 97.8 F Pulse Rate 66 87 Respiratory 16 18 Rate Blood Pressure 134/65 154/92 O2 Sat by Pulse 98 99 Oximetry Procedures - Orthopedic Splinting/Casting Injury #1 Side: right Upper Extremity Injury Location: hand Upper Extremity Immobilizer: finger (other) (Radial gutter splint) Medical Decision Making - Medical Decision Making Was pt. sent in by a medical professional or institution (, PA, DIAMOND POWDER MIXER, urgent care, hospital, or usp...) When possible be specific @ -No Did you speak to anyone other than the patient for history (EMS, parent, family, police, friend...)? What history was obtained from this source @ -No Did you review nursing and triage notes (agree or disagree)? Why? @ -I reviewed and agree with nursing and triage notes Were old charts reviewed (outside hosp., previous admission, EMS record, old EKG, old radiological studies, urgent care reports/EKG's, usp records)? Report findings @ -No old charts were reviewed Differential Diagnosis (chest pain, altered mental status, abdominal pain women, abdominal pain men, vaginal bleeding, weakness, fever, dyspnea, syncope, headache, dizziness, GI bleed, back pain, seizure, CVA, palpatations, mental health, musculoskeletal)? @ -Differential Musculoskeletal Muscular strain, contusion, ligament sprain, fracture, arthritis, septic arthritis, bursitis, cellulitis, muscle spasm, nerve compression, DVT, arterial occlusion, herpes zoster, electrolyte abnormality, tumor.... This is not meant to be in all inclusive list EKG interpreted by me (3pts min.). @ -Done X-rays interpreted by me (1pt min.). @ -Right hand x-ray shows avulsion fracture of base of second digit proximal phalanx with intra-articular fragment. CT interpreted by me (1pt min.). @ -None done U/S interpreted by me (1pt. min.). @ -None done What testing was considered but not performed or refused? (CT, X-rays, U/S, labs)? Why? @ -None What meds were considered but not given or refused? Why? @ -None Did you discuss the management of the patient with other professionals (professionals i.e. , PA, DIAMOND POWDER MIXER, lab, RT, psych nurse, social sciences chair, resource development director, teacher, parachute officer, rehabilitation case coordinator)? Give summary @ -No Was smoking cessation discussed for >3mins.? @ -No Was critical care preformed (if so, how long)? @ -No Were there social determinants of health that impacted care today? How? (Homelessness, low income, unemployed, alcoholism, drug addiction, transportation, low edu. Level, literacy, decrease access to med. care, [facility], rehab)? @ -No Was there de-escalation of care discussed even if they declined (Discuss DNR or withdrawal of care, Hospice)? DNR status @ -No What co-morbidities impacted this encounter? (DM, HTN, Smoking, COPD, CAD, Cancer, CVA, ARF, Chemo, Hep., AIDS, mental health diagnosis, sleep apnea, morbid obesity)? @ -None Was patient admitted / discharged? Hospital course, mention meds given and route, prescriptions, significant lab abnormalities, going to OR and other pertinent info. @ -Patient initially provided IM Toradol and p.o. Tylenol for pain. Right hand x-ray shows avulsion fracture of base of second digit proximal phalanx with intra-articular fragment. Radial gutter splint applied patient discharged with T3 starter pack. Advised alternate Tylenol/Motrin every 4 hours for pain and RICE. Follow-up with orthopedics for ongoing management of avulsion fracture. Discussed patient with Dr. Hein. Undiagnosed new problem with uncertain prognosis? @ -No Drug Therapy requiring intensive monitoring for toxicity (Heparin, Nitro, Insulin, Cardizem)? @ -No Were any procedures done? @ -Radial gutter splint applied to right hand. See procedure note Diagnosis/symptom? @ -Closed avulsion fracture of right second digit Acute, or Chronic, or Acute on Chronic? @ -Acute Uncomplicated (without systemic symptoms) or Complicated (systemic symptoms)? @ -Uncomplicated Side effects of treatment? @ -No Exacerbation, Progression, or Severe Exacerbation? @ -No Poses a threat to life or bodily function? How? (Chest pain, [place], [place], pneumonia, PE, COPD, DKA, ARF, appy, cholecystitis, CVA, Diverticulitis, Homicidal, Suicidal, threat to staff... and all critical care pts) @ -No Disposition Clinical Impression: Avulsion fracture of proximal phalanx of finger Disposition: HOME SELF-CARE Condition: Fair Instructions (If sedation given, give patient instructions): Avulsion Fracture (ED) Additional Instructions: Alternate Tylenol/Motrin every 4 hours for pain. Follow-up with orthopedics for ongoing management of intra-articular avulsion fracture. Prescriptions: Ibuprofen [Motrin] 800 mg PO Q8HR PRN #30 tab PRN Reason: Pain Is patient prescribed a controlled substance at d/c from ED?: No Referrals: Ping Leon MD [Primary Care Provider] - 1-2 days [facility] [Provider Group] - 1-2 days [facility] [Provider Group] - 1-2 days Time of Disposition: 14:30
[2025-02-17] MEDS: ACETAMINOPHEN TAB 500 MG TAB PO STA (12:12)
[2025-02-17] MEDS: KETOROLAC 15 MG/ML 1 ML VIAL IM STA (12:13)
--- NOTE | 2025-02-17 13:53 | XR ---
EXAMINATION TYPE: XR hand complete RT DATE OF EXAM: 02/17/2025 1:03 PM COMPARISON: 04/08/2017 CLINICAL INDICATION: Male, 59 years old with history of Slammed in door, second digit/metacarpal; [facility] , pain TECHNIQUE: XR hand complete RT 3 views were obtained. FINDINGS/IMPRESSION: 1. Avulsion fracture suspected of the base of the second digit proximal phalanx. This fragment is ne w from 04/08/2017. Consider would likely be an intra-articular fragment. Consider CT imaging for furthe r evaluation. 2. 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 [facility], , 02/17/2025 1:51 PM
[2025-02-17] MEDS: ACET/COD 300 MG/30 MG STARTER PACK TAB BTL PO STA (14:22)
[2025-02-17 14:27] VITALS: BP 154/92; PULSE 87; RESP 18; TEMP 97.8
== END 2025-02-17 14:26 | disposition home or self-care (01) ==
LOC: EC 11:51
DX: S62.610A Displaced fracture of proximal phalanx of right index finger, initial encounter for closed fracture (principal); F17.200 Nicotine dependence, unspecified, uncomplicated; W23.2XXA Caught, crushed, jammed or pinched between a moving and stationary object, initial encounter
CPT/HCPCS: 73130; 99283; 96372; 29125; J1885